=== PATIENT | female | born 1940 | race Hispanic/Latino ===

== ENCOUNTER 2018-04-21 15:26 | Inpatient (IN) | payer MEDICARE, MEDICAID ==
[2018-04-21 16:11] VITALS: BMI 33.3
--- NOTE | 2018-04-21 16:20 | ED PDOC ---
Arrival/HPI - General Time Seen by Provider: 04/21/18 16:08 Historian: Patient, Family (daughter) - History of Present Illness Narrative History of Present Illness (Text): 04/21/18 16:48 78 year old female, whose past medical history includes hypertension, hyperlipidemia, cataracts, osteoarthritis, spinal stenosis, herniated disk, partial colectomy, and inguinal hernia, presents to the emergency department accompanied by her daughter for worsening abdominal pain. Patient states that she has been experiencing abdominal pain for the past few weeks, but today she states that she can longer tolerate the pain. She notes this symptom feels like prior hernia. She notes associated diarrhea, and naseua. No constipation. She has taken Tylenol with no relief. Patient denies fevers, chills, headache, dizziness, chest pain, shortness of breath, dyspnea on exertion, cough, vomiting, back pain, neck pain, or any other complaint. PMD: Dr. Degroot Time/Duration: > week Symptom Course: Worsening Activities at Onset: Light Context: Home Past Medical History - Provider Review Nursing Documentation Reviewed: Yes - Infectious Disease Hx of Infectious Diseases: None - Cardiac Hx Cardiac Disorders: Yes Hx Hypertension: Yes Hx Peripheral Edema: Yes - Pulmonary Hx Respiratory Disorders: No - Neurological Hx Neurological Disorder: No - HEENT Hx HEENT Disorder: Yes Hx Cataracts: Yes - Renal Hx Renal Disorder: No - Endocrine/Metabolic Hx Endocrine Disorders: No - Hematological/Oncological Hx Blood Disorders: No - Integumentary Hx Dermatological Disorder: No - Musculoskeletal/Rheumatological Hx Musculoskeletal Disorders: Yes Hx Arthritis: Yes Hx Back Pain: Yes Hx Falls: No Hx Herniated Disk: Yes Hx Osteoarthritis: Yes Hx Spinal Stenosis: Yes Other/Comment: HX: CARPAL TUNNEL SYNDROME - Gastrointestinal Hx Gastrointestinal Disorders: Yes Hx Bowel Surgery: Yes (PARTIAL COLECTOMY) Hx Gastroesophageal Reflux: Yes Other/Comment: - Colonoscopy. - Endoscopy. - Peptic Ulcer Disease. - Colonic Polyps (Pre-Cancerous) - Genitourinary/Gynecological Hx Genitourinary Disorders: No - Psychiatric Hx Psychophysiologic Disorder: No - Surgical History Other/Comment: HX: 10/29/15-DECOMPRESSION L4-5, FUSION WITH FIXATION L5-S1 USING SCREWS. HX: 06/09/16-LEFT CARPAL TUNNEL RELEASE ENDOSCOPIC WITH STEROID INJECTION LEFT HAND ALL FINGERS; EXCISION LEFT RING FINGER MASS. HX: 08/12/16- CARPAL/CUBITAL TUNNEL RELEASE ENDOSCOPIC RIGHT - Anesthesia Hx Anesthesia: Yes Hx Anesthesia Reactions: No Hx Malignant Hyperthermia: No - Suicidal Assessment Feels Threatened In Home Enviroment: No Family/Social History - Physician Review Nursing Documentation Reviewed: Yes Family/Social History: No Known Family HX Smoking Status: Never Smoked Hx Alcohol Use: No Allergies/Home Meds Allergies/Adverse Reactions: Allergies No Known Allergies Allergy (Verified 10/31/15 20:58) Home Medications: Home Meds Medication Instructions Recorded Confirmed Lisinopril/Hydrochlorothiazide 1 tab PO DAILY 04/21/18 04/21/18 [Lisinopril-Hctz 20-12.5 mg Tab] Omeprazole 1 cap PO DAILY 04/21/18 04/21/18 RX: Ezetimibe [Zetia] 1 tab PO DAILY 04/21/18 04/21/18 RX: Tamoxifen [Nolvadex] 20 mg PO DAILY 04/21/18 04/21/18 RX: Zolpidem [Ambien] 1 tab PO HS PRN 04/21/18 04/21/18 Review of Systems - Physician Review All systems were reviewed & negative as marked: Yes - Review of Systems Constitutional: absent: Fatigue, Fevers Eyes: absent: Vision Changes ENT: absent: Hearing Changes Respiratory: absent: SOB, Cough Cardiovascular: absent: Chest Pain Gastrointestinal: Abdominal Pain, Diarrhea, Nausea. absent: Constipation, Vomiting, Appetite Changes, Hematochezia, Hematemesis, Anorexia, Food Intolerance Genitourinary Female: absent: Dysuria, Frequency, Hematuria, Urine Output Changes, Vaginal Bleeding, Vaginal Discharge Musculoskeletal: absent: Back Pain, Neck Pain, Joint Swelling, Myalgias Skin: absent: Rash Neurological: absent: Headache, Dizziness Endocrine: absent: Diaphoresis Physical Exam Vital Signs Reviewed: Yes Temperature: Afebrile Blood Pressure: Normal Pulse: Regular Respiratory Rate: Normal Appearance: Positive for: Well-Appearing, Non-Toxic, Comfortable Pain Distress: None Mental Status: Positive for: Alert and Oriented X 3 - Systems Exam Head: Present: Atraumatic, Normocephalic Pupils: Present: PERRL Extroacular Muscles: Present: EOMI Conjunctiva: Present: Normal Mouth: Present: Moist Mucous Membranes Neck: Present: Normal Range of Motion. No: Meningeal Signs Respiratory/Chest: Present: Clear to Auscultation, Good Air Exchange. No: Respiratory Distress, Accessory Muscle Use Cardiovascular: Present: Regular Rate and Rhythm, Normal S1, S2. No: Murmurs Abdomen: Present: Tenderness (periumbilical tenderness), Normal Bowel Sounds. No: Distention, Peritoneal Signs, Rebound, Guarding, Rovsing's Sign Present, Hernias Back: Present: Normal Inspection Upper Extremity: Present: Normal Inspection. No: Cyanosis, Edema Lower Extremity: Present: Normal Inspection. No: Edema Neurological: Present: GCS=15, CN II-XII Intact, Speech Normal Skin: Present: Warm, Dry, Normal Color. No: Rashes Psychiatric: Present: Alert, Oriented x 3, Normal Insight, Normal Concentration Medical Decision Making ED Course and Treatment: 04/21/18 16:20 Impression: 78 year old female who presents to the emergency department complaining of abdominal pain. On exam, periumbilical tenderness without notable hernia sac. No direct inguinal hernia noted. No constipation or diarrhea. No dark or bloody stool. Likely umbilical hernia vs colitis. Pending imaging and labs. No vagina d/c or rash. No trauma or fall. No chest pain or sob. Plan: -- Abdomen and Pellvis CT --EKG --Labs -- IV fluids -- Zofran -- Urinalysis -- Reassess and disposition Prior Visits: Notes and results from previous visits were reviewed. Progress Notes: EKG reviewed, shows: NSR at 80bpm, no stemi. 04/21/18 1900 labs largely unremarkable pt in NAD pending UA completion pending CT abd pelvis Signed out to oncoming physician: Dr. Rouse pending imaging. Pt and family agreeable to plan. - Scribe Statement The provider has reviewed the documentation as recorded by the Keraibjose luis Knapp Provider Scribe Attestation: All medical record entries made by the Scribe were at my direction and personally dictated by me. I have reviewed the chart and agree that the record accurately reflects my personal performance of the history, physical exam, medical decision making, and the department course for this patient. I have also personally directed, reviewed, and agree with the discharge instructions and disposition. Disposition/Present on Arrival - Present on Arrival Any Indicators Present on Arrival: No History of DVT/PE: No History of Uncontrolled Diabetes: No Urinary Catheter: No History Surgical Site Infection Following: Orthopedic Procedures - Disposition Have Diagnosis and Disposition been Completed?: Yes Diagnosis: Abdominal pain Disposition: HOSPITALIZED Disposition Time: 19:00 Condition: GOOD
[2018-04-21] MEDS ORDERED: Sodium Chloride 0.9% 1,000 ML IV SCH (16:30)
[2018-04-21] MEDS ORDERED: Iohexol 240 (50 ml) ONE (16:47)
[2018-04-21 17:19] LABS: ALB/GLOB RATIO 1.3 (1.1-1.8); ALBUMIN 3.8 g/dL (3.0-4.8); ALT/SGPT 28 U/L (7-56); AST/SGOT 34 U/L (14-36); BLOOD UREA NITROGEN 13 mg/dL (7-21); CALCIUM 8.9 mg/dL (8.4-10.5); GFR NON-AFRICAN AMERICAN > 60; LIPASE 48 U/L (23-300)
[2018-04-21 17:21] LABS: BASO # 0.02 K/mm3 (0.0-2.0); BASO % 0.3 % (0.0-3.0); EOS % 0.1 % (1.5-5.0); GRAN # 6.5 (1.4-6.5); GRAN % 81.8 % (50.0-68.0); HEMOGLOBIN 10.9 g/dL (12.0-16.0); LYMPH # 1.2 (1.2-3.4); LYMPH % 14.8 % (22.0-35.0); MEAN CELL VOLUME 88.3 fl (80.0-105.0); MEAN CORPUSCULAR HEMOGLOBIN 29.8 pg (25.0-35.0); MEAN CORPUSCULAR HGB CONC 33.7 g/dl (31.0-37.0); MEAN PLATELET VOLUME 9.9 fl (7.0-11.0); MONO # 0.2 (0.1-0.6); RBC 3.66 10^6/uL (3.5-6.1); RED CELL DISTRIBUTION WIDTH 12.6 % (11.5-14.5)
[2018-04-21] MEDS ORDERED: Iohexol 350 MG/100 ML VIAL ONE (18:17)
[2018-04-21 18:22] LABS: URINE BILIRUBIN NEGATIVE (NEGATIVE); URINE BLOOD TRACE-INTACT (NEGATIVE); URINE GLUCOSE (UA) NEGATIVE (NEGATIVE); URINE LEUKOCYTE ESTERASE NEGATIVE Leu/uL (NEGATIVE); URINE PROTEIN NEGATIVE mg/dL (<30 mg/dL); URINE UROBILINOGEN 0.2 E.U./dL (<1 E.U./dL)
[2018-04-21 18:36] LABS: URINE APPEARANCE CLEAR (CLEAR); URINE COLOR YELLOW (YELLOW)
--- NOTE | 2018-04-21 18:58 | ED PDOC ---
Physical Exam Vital Signs Reviewed: Yes Vital Signs Temp Pulse Resp BP Pulse Ox 04/21/18 18:52 98.0 F 71 18 116/50 L 99 04/21/18 15:26 99.8 F H 85 16 139/70 98 Temperature: Afebrile Blood Pressure: Normal Pulse: Regular Respiratory Rate: Normal Appearance: Positive for: Well-Appearing, Non-Toxic, Comfortable Pain Distress: None Mental Status: Positive for: Alert and Oriented X 3 Medical Decision Making ED Course and Treatment: 04/21/18 18:56 Patient initially presented with abdominal pain and has history of umbilical hernia. PCP :Dr. Garg Specialist :Dr. Mandel(general surgery) Signout received from Dr. Roberts with labs, CT a/p, and reassessment. 04/21/18 20:56 CT a/p reveals pancolitis with patient reevaluated and reports slight improvement in pain. Rochephin and Flagyl ordered. Shared decision making with patient and daughter who desire for patient to stay in hospital. Spoke to Dr. Centeno(house staff) who accepts patient onto his service. - Lab Interpretations Lab Results: 04/21/18 16:45 04/21/18 16:45 Lab Results 04/21/18 18:14: Urine Color Yellow, Urine Appearance Clear, Urine pH 6.0, Ur Specific [place] 1.010, Urine Protein Negative, Urine Glucose (UA) Negative, Urine Ketones Negative, Urine Blood Trace-intact H, Urine Nitrate Positive H, Urine Bilirubin Negative, Urine Urobilinogen 0.2, Ur Leukocyte Esterase Negative, Urine RBC Pending, Urine WBC Pending 04/21/18 16:45: Sodium 140, Potassium 3.3 L, Chloride 106, Carbon Dioxide 26, Anion Gap 11, BUN 13, Creatinine 0.9, Est GFR ( Amer) > 60, Est GFR (Non- Af Amer) > 60, Random Glucose 139 H, Calcium 8.9, Magnesium 1.7, Total Bilirubin 0.4, AST 34, ALT 28, Alkaline Phosphatase 54, Total Protein 6.7, Albumin 3.8, Globulin 2.9, Albumin/Globulin Ratio 1.3, Lipase 48 04/21/18 16:45: WBC 8.0, RBC 3.66, Hgb 10.9 L, Hct 32.3 L, MCV 88.3, MCH 29.8, MCHC 33.7, RDW 12.6, Plt Count 217, MPV 9.9, Gran % 81.8 H, Lymph % (Auto) 14.8 L, [place] % (Auto) 3.0, Eos % (Auto) 0.1 L, Baso % (Auto) 0.3, Gran # 6.50, Lymph # (Auto) 1.2, [place] # (Auto) 0.2, Eos # (Auto) 0.0, Baso # (Auto) 0.02 - RAD Interpretation Radiology Orders: 04/21/18 16:22 ABD PELVIS PO & IV CONTRAST [CT] Stat - Medication Orders Current Medication Orders: Sodium Chloride (Sodium Chloride 0.9%) 1,000 mls @ 100 mls/hr IV .Q10H [facility] Last Admin: 04/21/18 17:04 Dose: 100 mls/hr eMAR Start Stop Document 04/21/18 17:04 (Rec: 04/21/18 17:04 [place] [id number]) Intravenous Solution Start Date 04/21/18 Start Time 17:04 Discontinued Medications Ondansetron HCl (Zofran Inj) 4 mg IVP STAT STA Stop: 04/21/18 16:23 Last Admin: 04/21/18 16:55 Dose: 4 mg IVP Administration Document 04/21/18 16:55 (Rec: 04/21/18 16:55 [place] [id number]) Charges for Administration # of IVP Administrations 1 Disposition/Present on Arrival - Present on Arrival Any Indicators Present on Arrival: Yes History of DVT/PE: No History of Uncontrolled Diabetes: No Urinary Catheter: No History of Decub. Ulcer: No History Surgical Site Infection Following: Orthopedic Procedures - Disposition Have Diagnosis and Disposition been Completed?: Yes Diagnosis: Pancolitis Disposition: HOSPITALIZED Disposition Time: 20:50 Patient Plan: Admission Condition: GUARDED
[2018-04-21 18:59] LABS: URINE BACTERIA SMALL /hpf; URINE WBC 0 - 2 /hpf (0-6)
[2018-04-21] MEDS ORDERED: cefTRIAXone 1 gm 1 GM/100 ML BAG IVPB STA (21:02)
[2018-04-21] MEDS ORDERED: metroNIDAZOLE IV 500 mg/100 ml 500 MG/100 ML BAG IVPB STA (21:02)
[2018-04-22] MEDS ORDERED: Sodium Chloride 0.9% 1,000 ML IV SCH (01:30)
--- NOTE | 2018-04-22 04:09 | CP.PCM.CON ---
<Josette Landeros - Last Filed: 04/22/18 07:27> History of Present Illness - History of Present Illness History of Present Illness: General Surgery Consult note for Dr. Askew consulted for Colitis Patient is a 78 yr old female with PMH HTN, HLD, OA, spinal stenosis who presents to [facility] ED with 3 days of worsening abdominal pain, yellow diarrhea and one episode of nausea and chills this am. She denies any LINDSEY, Fevers, CP, SOB, vomiting, blood in stool, recent travel (returned from [place] 2 months ago), or recent antibiotic use. PMH: HTN, HLD, OA, spinal stenosis PSH: umbilical hernia repair, right inguinal hernia repair, right hemicolectomy right mastectomy/ lumpectomy in August (on Tamoxifen), bilateral cataract surgery, lumbar disc surgery (has plates), bone stimulator (no MRI) Social: denies all: nkda Review of Systems - Review of Systems All systems: reviewed and no additional remarkable complaints except (as per HPI) Past Patient History - Infectious Disease Hx of Infectious Diseases: None - Past Medical History & Family History Past Medical History?: Yes - Past Social History Smoking Status: Never Smoked - CARDIAC Hx Cardiac Disorders: Yes Hx Hypertension: Yes Hx Peripheral Edema: Yes - PULMONARY Hx Respiratory Disorders: No - NEUROLOGICAL Hx Neurological Disorder: No - HEENT Hx HEENT Problems: Yes Hx Cataracts: Yes - RENAL Hx Chronic Kidney Disease: No - ENDOCRINE/METABOLIC Hx Endocrine Disorders: No - HEMATOLOGICAL/ONCOLOGICAL Hx Blood Disorders: No - INTEGUMENTARY Hx Dermatological Problems: No - MUSCULOSKELETAL/RHEUMATOLOGICAL Hx Musculoskeletal Disorders: Yes Hx Arthritis: Yes Hx Back Pain: Yes Hx Falls: No Hx Herniated Disk: Yes Hx Osteoarthritis: Yes Hx Spinal Stenosis: Yes Other/Comment: HX: CARPAL TUNNEL SYNDROME - GASTROINTESTINAL Hx Gastrointestinal Disorders: Yes Hx Gastroesophageal Reflux: Yes Other/Comment: - Colonoscopy. - Endoscopy. - Peptic Ulcer Disease. - Colonic Polyps (Pre-Cancerous) - GENITOURINARY/GYNECOLOGICAL Hx Genitourinary Disorders: No - PSYCHIATRIC Hx Psychophysiologic Disorder: No Hx Substance Use: No - SURGICAL HISTORY Hx Surgeries: Yes - ANESTHESIA Hx Anesthesia: Yes Hx Anesthesia Reactions: No Hx Malignant Hyperthermia: No Meds Allergies/Adverse Reactions: Allergies Allergy/AdvReac Type Severity Reaction Status Date / Time No Known Allergies Allergy Verified 10/31/15 20:58 - Medications Medications: Current Medications Acetaminophen (Tylenol 325mg Tab) 650 mg PO Q6H PRN PRN Reason: Pain, moderate (4-7) Ezetimibe (Zetia) 10 mg PO DAILY [facility] Hydrochlorothiazide (Microzide) 12.5 mg PO DAILY [facility] Metronidazole (Flagyl) 500 mg in 100 mls @ 100 mls/hr IVPB Q8 [facility]; Protocol Ceftriaxone Sodium (Rocephin 1 Gram Ivpb) 1 gm in 100 mls @ 100 mls/hr IVPB DAILY [facility]; Protocol Sodium Chloride (Sodium Chloride 0.9%) 1,000 mls @ 60 mls/hr IV .[id number] [facility] Last Admin: 04/22/18 03:35 Dose: 60 mls/hr Potassium Chloride (Potassium Chloride 20 Meq/100 Ml) 20 meq in 100 mls @ 50 mls/hr IVPB Q2H [facility] Stop: 04/22/18 06:14 Last Admin: 04/22/18 03:34 Dose: 50 mls/hr Lisinopril (Zestril) 20 mg PO DAILY [facility] Ondansetron HCl (Zofran Inj) 4 mg IVP Q6H PRN PRN Reason: Nausea/Vomiting Tamoxifen Citrate (Nolvadex) 20 mg PO DAILY [facility] Zolpidem Tartrate (Ambien) 5 mg PO HS PRN; Protocol PRN Reason: Sleep Physical Exam - Constitutional Appears: Well, Non-toxic, No Acute Distress - Head Exam Head Exam: ATRAUMATIC, NORMOCEPHALIC - Eye Exam Eye Exam: EOMI - ENT Exam ENT Exam: Mucous Membranes Moist - Respiratory Exam Respiratory Exam: NORMAL BREATHING PATTERN - Cardiovascular Exam Cardiovascular Exam: REGULAR RHYTHM - GI/Abdominal Exam GI & Abdominal Exam: Soft, Tenderness (mild RUQ, RLQ, LLQ). absent: Distended, Guarding - Extremities Exam Extremities exam: Positive for: pedal pulses present. Negative for: calf tenderness, pedal edema - Neurological Exam Neurological exam: Alert, Oriented x3 - Psychiatric Exam Psychiatric exam: Normal Affect, Normal Mood - Skin Skin Exam: Dry, Intact, Normal Color, Warm Additional comments: umbilical and inguinal scars noted Results - Vital Signs Recent Vital Signs: Last Vital Signs Temp 98.8 F 04/21/18 22:37 Pulse 80 04/21/18 22:37 Resp 20 04/22/18 01:25 BP 151/72 H 04/21/18 22:37 Pulse Ox 98 04/21/18 22:37 - Labs Result Diagrams: 04/22/18 06:00 04/21/18 16:45 Labs: Laboratory Results - last 24 hr 04/21/18 04/21/18 04/21/18 16:45 16:45 18:14 WBC 8.0 RBC 3.66 Hgb 10.9 L Hct 32.3 L MCV 88.3 MCH 29.8 MCHC 33.7 RDW 12.6 Plt Count 217 MPV 9.9 Gran % 81.8 H Lymph % (Auto) 14.8 L [place] % (Auto) 3.0 Eos % (Auto) 0.1 L Baso % (Auto) 0.3 Gran # 6.50 Lymph # (Auto) 1.2 [place] # (Auto) 0.2 Eos # (Auto) 0.0 Baso # (Auto) 0.02 Sodium 140 Potassium 3.3 L Chloride 106 Carbon Dioxide 26 Anion Gap 11 BUN 13 Creatinine 0.9 Est GFR ( Amer) > 60 Est GFR (Non-Af Amer) > 60 Random Glucose 139 H Calcium 8.9 Magnesium 1.7 Total Bilirubin 0.4 AST 34 ALT 28 Alkaline Phosphatase 54 Total Protein 6.7 Albumin 3.8 Globulin 2.9 Albumin/Globulin Ratio 1.3 Lipase 48 Urine Color Yellow Urine Appearance Clear Urine pH 6.0 Ur Specific [place] 1.010 Urine Protein Negative Urine Glucose (UA) Negative Urine Ketones Negative Urine Blood Trace-intact H Urine Nitrate Positive H Urine Bilirubin Negative Urine Urobilinogen 0.2 Ur Leukocyte Esterase Negative Urine RBC 2 - 5 H Urine WBC 0 - 2 Ur Epithelial Cells 1 - 3 Urine Bacteria Small Assessment & Plan - Assessment and Plan (Free Text) Assessment: 78 F with Colitis Plan: IVF NPO pain control Zofran PRN Cdiff toxin/antigen recommend Dr. Ferro for GI as pt known to him discussed with Dr. Jamilah Landeros, PGY 1 - Date & Time Date: 04/21/18 Time: 22:35 <Joss Askew - Last Filed: 04/22/18 15:05> Meds - Medications Medications: Current Medications Acetaminophen (Tylenol 325mg Tab) 650 mg PO Q6H PRN PRN Reason: Pain, moderate (4-7) Ezetimibe (Zetia) 10 mg PO DAILY [facility] Last Admin: 04/22/18 09:20 Dose: 10 mg Enoxaparin Sodium (Lovenox) 40 mg SC DAILY [facility]; Protocol Last Admin: 04/22/18 09:09 Dose: 40 mg Hydrochlorothiazide (Microzide) 12.5 mg PO DAILY [facility] Last Admin: 04/22/18 09:10 Dose: 12.5 mg Metronidazole (Flagyl) 500 mg in 100 mls @ 100 mls/hr IVPB Q8 [facility]; Protocol Last Admin: 04/22/18 13:52 Dose: 100 mls/hr Ceftriaxone Sodium (Rocephin 1 Gram Ivpb) 1 gm in 100 mls @ 100 mls/hr IVPB DAILY [facility]; Protocol Last Admin: 04/22/18 09:19 Dose: 100 mls/hr Potassium Chloride 40 meq/ (Sodium Chloride) 1,020 mls @ 60 mls/hr IV .Q17H [facility] Last Admin: 04/22/18 09:14 Dose: 60 mls/hr Lisinopril (Zestril) 20 mg PO DAILY [facility] Last Admin: 04/22/18 09:19 Dose: 20 mg Morphine Sulfate (Morphine) 2 mg IVP Q4H PRN PRN Reason: Pain, severe (8-10) Last Admin: 04/22/18 14:46 Dose: 2 mg Ondansetron HCl (Zofran Inj) 4 mg IVP Q6H PRN PRN Reason: Nausea/Vomiting Pantoprazole Sodium (Protonix Inj) 40 mg IVP DAILY [facility] Last Admin: 04/22/18 09:14 Dose: 40 mg Tamoxifen Citrate (Nolvadex) 20 mg PO DAILY [facility] Last Admin: 04/22/18 09:11 Dose: 20 mg Zolpidem Tartrate (Ambien) 5 mg PO HS PRN; Protocol PRN Reason: Sleep Results - Vital Signs Recent Vital Signs: Last Vital Signs Temp 98.4 F 04/22/18 07:44 Pulse 74 04/22/18 09:19 Resp 20 04/22/18 07:44 BP 149/79 04/22/18 09:19 Pulse Ox 94 L 04/22/18 07:44 - Labs Result Diagrams: 04/22/18 06:00 04/22/18 06:00 Labs: Laboratory Results - last 24 hr 04/21/18 04/21/18 04/21/18 16:45 16:45 18:14 WBC 8.0 RBC 3.66 Hgb 10.9 L Hct 32.3 L MCV 88.3 MCH 29.8 MCHC 33.7 RDW 12.6 Plt Count 217 MPV 9.9 Gran % 81.8 H Lymph % (Auto) 14.8 L [place] % (Auto) 3.0 Eos % (Auto) 0.1 L Baso % (Auto) 0.3 Gran # 6.50 Lymph # (Auto) 1.2 [place] # (Auto) 0.2 Eos # (Auto) 0.0 Baso # (Auto) 0.02 Sodium 140 Potassium 3.3 L Chloride 106 Carbon Dioxide 26 Anion Gap 11 BUN 13 Creatinine 0.9 Est GFR ( Amer) > 60 Est GFR (Non-Af Amer) > 60 Random Glucose 139 H Calcium 8.9 Magnesium 1.7 Total Bilirubin 0.4 AST 34 ALT 28 Alkaline Phosphatase 54 Total Protein 6.7 Albumin 3.8 Globulin 2.9 Albumin/Globulin Ratio 1.3 Lipase 48 Urine Color Yellow Urine Appearance Clear Urine pH 6.0 Ur Specific [place] 1.010 Urine Protein Negative Urine Glucose (UA) Negative Urine Ketones Negative Urine Blood Trace-intact H Urine Nitrate Positive H Urine Bilirubin Negative Urine Urobilinogen 0.2 Ur Leukocyte Esterase Negative Urine RBC 2 - 5 H Urine WBC 0 - 2 Ur Epithelial Cells 1 - 3 Urine Bacteria Small 04/22/18 04/22/18 06:00 06:00 WBC 8.4 RBC 3.81 Hgb 11.2 L Hct 33.9 L MCV 89.0 MCH 29.4 MCHC 33.0 RDW 12.8 Plt Count 209 MPV 9.8 Gran % 70.5 H Lymph % (Auto) 23.3 [place] % (Auto) 4.7 Eos % (Auto) 1.3 L Baso % (Auto) 0.2 Gran # 5.90 Lymph # (Auto) 2.0 [place] # (Auto) 0.4 Eos # (Auto) 0.1 Baso # (Auto) 0.02 Sodium 142 Potassium 3.4 L Chloride 110 H Carbon Dioxide 25 Anion Gap 10 BUN 12 Creatinine 0.9 Est GFR ( Amer) > 60 Est GFR (Non-Af Amer) > 60 Random Glucose 111 H Calcium 8.7 Magnesium Total Bilirubin 0.3 AST 26 ALT 26 Alkaline Phosphatase 58 Total Protein 6.9 Albumin 3.9 Globulin 3.0 Albumin/Globulin Ratio 1.3 Lipase Urine Color Urine Appearance Urine pH Ur Specific [place] Urine Protein Urine Glucose (UA) Urine Ketones Urine Blood Urine Nitrate Urine Bilirubin Urine Urobilinogen Ur Leukocyte Esterase Urine RBC Urine WBC Ur Epithelial Cells Urine Bacteria Assessment & Plan - Assessment and Plan (Free Text) Plan: Patient was seen, evaluated and examined by Dr. Rosario. . He agreed with the assessment and plan as per the resident's note.
--- NOTE | 2018-04-22 04:28 | CP.PCM.HP ---
<JulienThad - Last Filed: 04/23/18 20:13> History of Present Illness - History of Present Illness History of Present Illness: Amadeo Victoria, PGY-1 Medicine H&P Note for Dr. Mack: CC: Worsening Abd pain Pt is an 78 yo F with pmhx of HTN, HLD, cataracts, OA, spinal stenosis, herniated disk, partial colectomy, GERD and inguinal hernia who presents to the ED for worsening abd pain. She states that she has been having the same abd pain for about 5-6 months, but had acutely worsened since this AM. She reports that this AM when having her coffee she had an episode that was a 10/10 in intensity that starts around her belly button and then goes to her lower abdomen diffusely. She states that these episodes of abd pain last for only 20-30 mins and is typically self limiting. She does not relate the episodes of pain to food. At this time she denies fevers, chills, headaches, lightheadedness, SOB, cough, wheezing, chest pain, palpitations, leg swelling, nausea, vomiting, c/d, dysuria, or frequency. She admits to abd pain. Pmhx: HTN, HLD, cataracts, OA, spinal stenosis, herniated disk, partial colectomy, GERD and inguinal hernia Pshx: Breast ca (07/18) Meds: Omeprazole, tamoxifin, Lisinopril, ezetimibe, zolpidem All: NKDA Soc: Denies any tobacco use, Drinks a glass of wine at night, Denies illicit drug use Fam: Non-contributory Pmd: Mutterperl Pharm: Marlen Present on Admission - Present on Admission Any Indicators Present on Admission: No Review of Systems - Review of Systems Review of Systems: 12 point ROS reviewed and negative except for stated in HPI above. Past Patient History - Infectious Disease Hx of Infectious Diseases: None - Past Medical History & Family History Past Medical History?: Yes - Past Social History Smoking Status: Never Smoked - CARDIAC Hx Cardiac Disorders: Yes Hx Hypertension: Yes Hx Peripheral Edema: Yes - PULMONARY Hx Respiratory Disorders: No - NEUROLOGICAL Hx Neurological Disorder: No - HEENT Hx HEENT Problems: Yes Hx Cataracts: Yes - RENAL Hx Chronic Kidney Disease: No - ENDOCRINE/METABOLIC Hx Endocrine Disorders: No - HEMATOLOGICAL/ONCOLOGICAL Hx Blood Disorders: No - INTEGUMENTARY Hx Dermatological Problems: No - MUSCULOSKELETAL/RHEUMATOLOGICAL Hx Musculoskeletal Disorders: Yes Hx Arthritis: Yes Hx Back Pain: Yes Hx Falls: No Hx Herniated Disk: Yes Hx Osteoarthritis: Yes Hx Spinal Stenosis: Yes Other/Comment: HX: CARPAL TUNNEL SYNDROME - GASTROINTESTINAL Hx Gastrointestinal Disorders: Yes Hx Gastroesophageal Reflux: Yes Other/Comment: - Colonoscopy. - Endoscopy. - Peptic Ulcer Disease. - Colonic Polyps (Pre-Cancerous) - GENITOURINARY/GYNECOLOGICAL Hx Genitourinary Disorders: No - PSYCHIATRIC Hx Psychophysiologic Disorder: No Hx Substance Use: No - SURGICAL HISTORY Hx Surgeries: Yes - ANESTHESIA Hx Anesthesia: Yes Hx Anesthesia Reactions: No Hx Malignant Hyperthermia: No Meds Allergies/Adverse Reactions: Allergies Allergy/AdvReac Type Severity Reaction Status Date / Time No Known Allergies Allergy Verified 10/31/15 20:58 Physical Exam - Constitutional Appears: Well, Non-toxic, No Acute Distress - Head Exam Head Exam: ATRAUMATIC, NORMAL INSPECTION, NORMOCEPHALIC - Eye Exam Eye Exam: EOMI, Normal appearance, PERRL - ENT Exam ENT Exam: Mucous Membranes Moist, Normal Exam - Respiratory Exam Respiratory Exam: Clear to Auscultation Bilateral, NORMAL BREATHING PATTERN. absent: Accessory Muscle Use, Decreased Breath Sounds, Rales, Rhonchi, Wheezes, Respiratory Distress, Stridor - Cardiovascular Exam Cardiovascular Exam: RRR, +S1, +S2. absent: Gallop, Rubs - GI/Abdominal Exam GI & Abdominal Exam: Normal Bowel Sounds, Soft, Tenderness (present diffusely on the R side ). absent: Distended, Firm, Guarding - Extremities Exam Extremities exam: Positive for: normal capillary refill, normal inspection, pedal pulses present. Negative for: calf tenderness, pedal edema, tenderness - Back Exam Back exam: NORMAL INSPECTION. absent: CVA tenderness (L), CVA tenderness (R) - Neurological Exam Neurological exam: Alert, Oriented x3 - Psychiatric Exam Psychiatric exam: Normal Affect, Normal Mood - Skin Skin Exam: Dry, Normal Color, Warm Results - Vital Signs Recent Vital Signs: Last Vital Signs Temp 98.8 F 04/21/18 22:37 Pulse 80 04/21/18 22:37 Resp 20 04/22/18 01:25 BP 151/72 H 04/21/18 22:37 Pulse Ox 98 04/21/18 22:37 - Labs Result Diagrams: 04/21/18 16:45 04/21/18 16:45 Labs: Laboratory Results - last 24 hr 04/21/18 04/21/18 04/21/18 16:45 16:45 18:14 WBC 8.0 RBC 3.66 Hgb 10.9 L Hct 32.3 L MCV 88.3 MCH 29.8 MCHC 33.7 RDW 12.6 Plt Count 217 MPV 9.9 Gran % 81.8 H Lymph % (Auto) 14.8 L [place] % (Auto) 3.0 Eos % (Auto) 0.1 L Baso % (Auto) 0.3 Gran # 6.50 Lymph # (Auto) 1.2 [place] # (Auto) 0.2 Eos # (Auto) 0.0 Baso # (Auto) 0.02 Sodium 140 Potassium 3.3 L Chloride 106 Carbon Dioxide 26 Anion Gap 11 BUN 13 Creatinine 0.9 Est GFR ( Amer) > 60 Est GFR (Non-Af Amer) > 60 Random Glucose 139 H Calcium 8.9 Magnesium 1.7 Total Bilirubin 0.4 AST 34 ALT 28 Alkaline Phosphatase 54 Total Protein 6.7 Albumin 3.8 Globulin 2.9 Albumin/Globulin Ratio 1.3 Lipase 48 Urine Color Yellow Urine Appearance Clear Urine pH 6.0 Ur Specific [place] 1.010 Urine Protein Negative Urine Glucose (UA) Negative Urine Ketones Negative Urine Blood Trace-intact H Urine Nitrate Positive H Urine Bilirubin Negative Urine Urobilinogen 0.2 Ur Leukocyte Esterase Negative Urine RBC 2 - 5 H Urine WBC 0 - 2 Ur Epithelial Cells 1 - 3 Urine Bacteria Small Assessment & Plan - Assessment and Plan (Free Text) Assessment: Pt is an 78 yo F with pmhx of HTN, HLD, cataracts, OA, spinal stenosis, herniated disk, partial colectomy, GERD and inguinal hernia who presents to the ED for worsening abd pain. CT Abd/pelvis showed colitis, f/u official read. Plan: 1. Pancolitis: - CT Abd/Pelvis - Pancolitis noted on ct - f/u official read - GI consulted - Dr. Pillo Duque and flagyl started - NS @ 60/hr - Blood cx - Surgery consulted - Dr. Jony Campuzano PRMari 2. Hypokalemia: - Repleted, will f/u in AM labs 3. Hx of HLD: - Cont home ezetimibe 4. Hx of HTN: - Cont HCTZ, lisinopril 5. Hx of R breast Ca s/p mastectomy: - Cont home tamoxifen 6. PPx: GI: Protonix DVT: Lovenox <Mike Betancourt - Last Filed: 04/24/18 19:08> Results - Vital Signs Recent Vital Signs: Last Vital Signs Temp 97.6 F 04/24/18 06:00 Pulse 68 04/24/18 06:00 Resp 20 04/24/18 06:00 BP 159/84 H 04/24/18 06:00 Pulse Ox 98 04/24/18 06:00 - Labs Result Diagrams: 04/24/18 06:30 04/24/18 06:30 Labs: Laboratory Results - last 24 hr 04/24/18 04/24/18 06:30 06:30 WBC 6.4 RBC 4.10 Hgb 12.1 Hct 36.8 MCV 89.8 MCH 29.5 MCHC 32.9 RDW 12.9 Plt Count 200 MPV 9.8 Gran % 60.5 Lymph % (Auto) 30.4 [place] % (Auto) 5.4 Eos % (Auto) 3.1 Baso % (Auto) 0.6 Gran # 3.84 Lymph # (Auto) 1.9 [place] # (Auto) 0.3 Eos # (Auto) 0.2 Baso # (Auto) 0.04 Sodium 142 Potassium 4.0 Chloride 110 H Carbon Dioxide 26 Anion Gap 10 BUN 7 Creatinine 0.8 Est GFR ( Amer) > 60 Est GFR (Non-Af Amer) > 60 Random Glucose 112 H Calcium 8.6 Total Bilirubin 0.3 AST 25 ALT 40 Alkaline Phosphatase 53 Total Protein 6.7 Albumin 3.8 Globulin 2.9 Albumin/Globulin Ratio 1.3 Attending/Attestation - Attestation I have personally seen and examined this patient.: Yes I have fully participated in the care of the patient.: Yes I have reviewed all pertinent clinical information: Yes
[2018-04-22 06:38] LABS: BASO # 0.02 K/mm3 (0.0-2.0); BASO % 0.2 % (0.0-3.0); EOS # 0.1 (0.0-0.7); EOS % 1.3 % (1.5-5.0); GRAN # 5.9 (1.4-6.5); GRAN % 70.5 % (50.0-68.0); HEMOGLOBIN 11.2 g/dL (12.0-16.0); LYMPH % 23.3 % (22.0-35.0); MEAN CORPUSCULAR HEMOGLOBIN 29.4 pg (25.0-35.0); MEAN PLATELET VOLUME 9.8 fl (7.0-11.0); MONO # 0.4 (0.1-0.6); MONO % 4.7 % (1.0-6.0); RBC 3.81 10^6/uL (3.5-6.1); RED CELL DISTRIBUTION WIDTH 12.8 % (11.5-14.5); WHITE BLOOD COUNT 8.4 10^3/uL (4.5-11.0)
[2018-04-22] MEDS: metroNIDAZOLE IV 500 mg/100 ml 500 MG/100 ML BAG IVPB SCH ×3 (07:28→21:31)
[2018-04-22 07:34] LABS: ALB/GLOB RATIO 1.3 (1.1-1.8); ALBUMIN 3.9 g/dL (3.0-4.8); ALT/SGPT 26 U/L (7-56); AST/SGOT 26 U/L (14-36); BLOOD UREA NITROGEN 12 mg/dL (7-21); CALCIUM 8.7 mg/dL (8.4-10.5); GFR NON-AFRICAN AMERICAN > 60
[2018-04-22] MEDS ORDERED: Potassium Chloride 20 mEq ER Tab PO STA (07:41)
--- NOTE | 2018-04-22 08:22 | CT ---
Date of service: 04/21/2018 PROCEDURE: CT Abdomen and Pelvis with contrast HISTORY: abd pain COMPARISON: Comparison is made to the previous study dated 01/16/2015 TECHNIQUE: Contrast dose: 100 mL of Omnipaque 350 intravenously. Axial and reformatted coronal and sagittal CT images of the abdomen and pelvis were obtained after IV and oral contrast administration. Radiation dose: Total exam DLP = 835.82 mGy-cm. This CT exam was performed using one or more of the following dose reduction techniques: Automated exposure control, adjustment of the mA and/or kV according to patient size, and/or use of iterative reconstruction technique. FINDINGS: LOWER THORAX: Ground-glass opacities at the lower lobes right more than left noted. No evidence of pleural effusion LIVER: Low-attenuation cystic lesions in the liver are again noted. GALLBLADDER AND BILE DUCTS: Gallstones are noted without evidence of acute cholecystitis. PANCREAS: Unremarkable. No gross lesion or ductal dilatation. SPLEEN: Unremarkable. ADRENALS: Unremarkable. No mass. KIDNEYS AND URETERS: Unremarkable. No hydronephrosis. No solid mass. VASCULATURE: Unremarkable. No aortic aneurysm. No aortic atherosclerotic calcification or mural plaque present. BOWEL: Gastric wall thickening is noted. There is suspicious for large bowel wall thickening more prominent in the left colon may represent colitis. Please correlate clinically. No evidence of high-grade bowel obstruction. APPENDIX: No evidence of appendicitis. PERITONEUM: Unremarkable. No free fluid. No free air. LYMPH NODES: Unremarkable. No enlarged lymph nodes. BLADDER: Urinary bladder wall thickening is noted. There is droplet of air seen in the anterior aspect of the bladder. REPRODUCTIVE: The uterus is heterogeneous mildly enlarged for the patient's age. BONES: No acute fracture. OTHER FINDINGS: None. IMPRESSION: Findings suggestive of colitis. Please correlate clinically. Contracted gallbladder contains gallstones. No CT evidence of acute cholecystitis. Gastric wall thickening. Heterogeneous mildly enlarged uterus. Urinary bladder wall thickening. Small droplet of air noted in the bladder. Preliminary report was submitted by [facility] Radiology contains concordant findings.
[2018-04-22] MEDS: Enoxaparin 40 mg Syringe SC SCH (09:09)
--- NOTE | 2018-04-22 09:17 | CARD ---
APPROVED REPORT Date of service: 04/21/2018 EKG Measurement Heart [id number] <Conclusion> Normal sinus rhythm Mild NSSTW changes Prolonged QTc
[2018-04-22] MEDS: cefTRIAXone 1 gm 1 GM/100 ML BAG IVPB SCH (09:19)
--- NOTE | 2018-04-22 09:41 | CP.PCM.CON ---
<Mahin Brennan - Last Filed: 04/22/18 16:34> History of Present Illness - History of Present Illness History of Present Illness: PGY6 GI Fellow Consult Note Patient is an 78yo female with PMHx significant for HTN, hyperlipidemia, PUD, lumbar stenosis s/p surgical repair, osteoarthritis, hepatic cysts and breast cancer who presented to the hospital with complaints of abdominal pain and diarr hea. Two days prior to admission, the patient noted sudden onset bilateral lower abdominal cramping pain. Following onset of pain, she developed multiple episodes of non-bloody, watery diarrhea and fever. As symptoms progressed, she presented to the ED for further evaluation. Denies any sick contacts, nausea, vomiting, weight loss. Traveled to the [place] from [place] two months ago. 12 system ROS performed and negative except where stated PMHx: See HPI PSHx: right hemicolectomy for dysplastic polyp, L4-S1 decompression and laminectomy, L5-S1 pedicle screw fixation, right carpal and cubital tunnel release, left trigger finger release, umbilical hernia repair, right inguinal hernia repair, B/L cataracts, right forearm faciotomy, cholecystectomy, right lumpectomy/mastectomy FHx: Discussed with patient and denies significant family history Social: Denies tobacco, EtOH or illicit drug use Endo: 06/2015 - EGD - stable esophageal subepithelial lesion, gastritis, healed gastric ulcer Past Patient History - Infectious Disease Hx of Infectious Diseases: None - Past Medical History & Family History Past Medical History?: Yes - Past Social History Smoking Status: Never Smoked - CARDIAC Hx Cardiac Disorders: Yes Hx Hypertension: Yes Hx Peripheral Edema: Yes - PULMONARY Hx Respiratory Disorders: No - NEUROLOGICAL Hx Neurological Disorder: No - HEENT Hx HEENT Problems: Yes Hx Cataracts: Yes - RENAL Hx Chronic Kidney Disease: No - ENDOCRINE/METABOLIC Hx Endocrine Disorders: No - HEMATOLOGICAL/ONCOLOGICAL Hx Blood Disorders: No - INTEGUMENTARY Hx Dermatological Problems: No - MUSCULOSKELETAL/RHEUMATOLOGICAL Hx Musculoskeletal Disorders: Yes Hx Arthritis: Yes Hx Back Pain: Yes Hx Falls: No Hx Herniated Disk: Yes Hx Osteoarthritis: Yes Hx Spinal Stenosis: Yes Other/Comment: HX: CARPAL TUNNEL SYNDROME - GASTROINTESTINAL Hx Gastrointestinal Disorders: Yes Hx Gastroesophageal Reflux: Yes Other/Comment: - Colonoscopy. - Endoscopy. - Peptic Ulcer Disease. - Colonic Polyps (Pre-Cancerous) - GENITOURINARY/GYNECOLOGICAL Hx Genitourinary Disorders: No - PSYCHIATRIC Hx Psychophysiologic Disorder: No Hx Substance Use: No - SURGICAL HISTORY Hx Surgeries: Yes - ANESTHESIA Hx Anesthesia: Yes Hx Anesthesia Reactions: No Hx Malignant Hyperthermia: No Meds Allergies/Adverse Reactions: Allergies Allergy/AdvReac Type Severity Reaction Status Date / Time No Known Allergies Allergy Verified 10/31/15 20:58 - Medications Medications: Current Medications Acetaminophen (Tylenol 325mg Tab) 650 mg PO Q6H PRN PRN Reason: Pain, moderate (4-7) Ezetimibe (Zetia) 10 mg PO DAILY [facility] Last Admin: 04/22/18 09:20 Dose: 10 mg Enoxaparin Sodium (Lovenox) 40 mg SC DAILY [facility]; Protocol Last Admin: 04/22/18 09:09 Dose: 40 mg Hydrochlorothiazide (Microzide) 12.5 mg PO DAILY [facility] Last Admin: 04/22/18 09:10 Dose: 12.5 mg Metronidazole (Flagyl) 500 mg in 100 mls @ 100 mls/hr IVPB Q8 [facility]; Protocol Last Admin: 04/22/18 07:28 Dose: 100 mls/hr Ceftriaxone Sodium (Rocephin 1 Gram Ivpb) 1 gm in 100 mls @ 100 mls/hr IVPB DAILY [facility]; Protocol Last Admin: 04/22/18 09:19 Dose: 100 mls/hr Potassium Chloride 40 meq/ (Sodium Chloride) 1,020 mls @ 60 mls/hr IV .Q17H [facility] Last Admin: 04/22/18 09:14 Dose: 60 mls/hr Lisinopril (Zestril) 20 mg PO DAILY [facility] Last Admin: 04/22/18 09:19 Dose: 20 mg Ondansetron HCl (Zofran Inj) 4 mg IVP Q6H PRN PRN Reason: Nausea/Vomiting Pantoprazole Sodium (Protonix Inj) 40 mg IVP DAILY [facility] Last Admin: 04/22/18 09:14 Dose: 40 mg Tamoxifen Citrate (Nolvadex) 20 mg PO DAILY [facility] Last Admin: 04/22/18 09:11 Dose: 20 mg Zolpidem Tartrate (Ambien) 5 mg PO HS PRN; Protocol PRN Reason: Sleep Physical Exam - Constitutional Appears: Non-toxic, No Acute Distress - Eye Exam Eye Exam: EOMI, PERRL - ENT Exam ENT Exam: Mucous Membranes Moist - Respiratory Exam Respiratory Exam: Clear to Auscultation Bilateral. absent: Rales, Rhonchi, Wheezes - Cardiovascular Exam Cardiovascular Exam: RRR, +S1, +S2 - GI/Abdominal Exam GI & Abdominal Exam: Normal Bowel Sounds, Soft, Tenderness (LLQ and RLQ, R>L). absent: Distended, Firm, Guarding, Organomegaly, Rigid - Extremities Exam Extremities exam: Positive for: normal inspection. Negative for: pedal edema - Neurological Exam Neurological exam: Alert, Oriented x3 - Psychiatric Exam Psychiatric exam: Normal Affect, Normal Mood - Skin Skin Exam: Dry, Warm Results - Vital Signs Recent Vital Signs: Last Vital Signs Temp 98.4 F 04/22/18 07:44 Pulse 74 04/22/18 09:19 Resp 20 04/22/18 07:44 BP 149/79 04/22/18 09:19 Pulse Ox 94 L 04/22/18 07:44 - Labs Result Diagrams: 04/22/18 06:00 04/22/18 06:00 Labs: Laboratory Results - last 24 hr 04/21/18 04/21/18 04/21/18 16:45 16:45 18:14 WBC 8.0 RBC 3.66 Hgb 10.9 L Hct 32.3 L MCV 88.3 MCH 29.8 MCHC 33.7 RDW 12.6 Plt Count 217 MPV 9.9 Gran % 81.8 H Lymph % (Auto) 14.8 L [place] % (Auto) 3.0 Eos % (Auto) 0.1 L Baso % (Auto) 0.3 Gran # 6.50 Lymph # (Auto) 1.2 [place] # (Auto) 0.2 Eos # (Auto) 0.0 Baso # (Auto) 0.02 Sodium 140 Potassium 3.3 L Chloride 106 Carbon Dioxide 26 Anion Gap 11 BUN 13 Creatinine 0.9 Est GFR ( Amer) > 60 Est GFR (Non-Af Amer) > 60 Random Glucose 139 H Calcium 8.9 Magnesium 1.7 Total Bilirubin 0.4 AST 34 ALT 28 Alkaline Phosphatase 54 Total Protein 6.7 Albumin 3.8 Globulin 2.9 Albumin/Globulin Ratio 1.3 Lipase 48 Urine Color Yellow Urine Appearance Clear Urine pH 6.0 Ur Specific [place] 1.010 Urine Protein Negative Urine Glucose (UA) Negative Urine Ketones Negative Urine Blood Trace-intact H Urine Nitrate Positive H Urine Bilirubin Negative Urine Urobilinogen 0.2 Ur Leukocyte Esterase Negative Urine RBC 2 - 5 H Urine WBC 0 - 2 Ur Epithelial Cells 1 - 3 Urine Bacteria Small 04/22/18 04/22/18 06:00 06:00 WBC 8.4 RBC 3.81 Hgb 11.2 L Hct 33.9 L MCV 89.0 MCH 29.4 MCHC 33.0 RDW 12.8 Plt Count 209 MPV 9.8 Gran % 70.5 H Lymph % (Auto) 23.3 [place] % (Auto) 4.7 Eos % (Auto) 1.3 L Baso % (Auto) 0.2 Gran # 5.90 Lymph # (Auto) 2.0 [place] # (Auto) 0.4 Eos # (Auto) 0.1 Baso # (Auto) 0.02 Sodium 142 Potassium 3.4 L Chloride 110 H Carbon Dioxide 25 Anion Gap 10 BUN 12 Creatinine 0.9 Est GFR ( Amer) > 60 Est GFR (Non-Af Amer) > 60 Random Glucose 111 H Calcium 8.7 Magnesium Total Bilirubin 0.3 AST 26 ALT 26 Alkaline Phosphatase 58 Total Protein 6.9 Albumin 3.9 Globulin 3.0 Albumin/Globulin Ratio 1.3 Lipase Urine Color Urine Appearance Urine pH Ur Specific [place] Urine Protein Urine Glucose (UA) Urine Ketones Urine Blood Urine Nitrate Urine Bilirubin Urine Urobilinogen Ur Leukocyte Esterase Urine RBC Urine WBC Ur Epithelial Cells Urine Bacteria Assessment & Plan - Assessment and Plan (Free Text) Assessment: Patient is an 78yo female with PMHx significant for HTN, hyperlipidemia, PUD, lumbar stenosis s/p surgical repair, osteoarthritis, hepatic cysts and breast cancer who presented to the hospital with complaints of abdominal pain and diarrhea. -Acute diarrheal illness suspect 2/2 colitis -Abnormal imaging of the GI tract - thickened gastric wall with H/O PUD Plan: -Agree with Ceftriaxone/Flagyl as ordered for acute colitis vs enteritis; ischemic colitis in differential though less likely given clinical picture -C diff ordered -Consider addition of stool culture -Await urine culture, U/A showing +Nitrate -OK to start clear liquid diet and advance as tolerated - Date & Time Date: 04/22/18 Time: 08:00 <Matias Ferro V - Last Filed: 04/22/18 22:52> Meds - Medications Medications: Current Medications Acetaminophen (Tylenol 325mg Tab) 650 mg PO Q6H PRN PRN Reason: Pain, moderate (4-7) Ezetimibe (Zetia) 10 mg PO DAILY [facility] Last Admin: 04/22/18 09:20 Dose: 10 mg Enoxaparin Sodium (Lovenox) 40 mg SC DAILY [facility]; Protocol Last Admin: 04/22/18 09:09 Dose: 40 mg Hydrochlorothiazide (Microzide) 12.5 mg PO DAILY [facility] Last Admin: 04/22/18 09:10 Dose: 12.5 mg Metronidazole (Flagyl) 500 mg in 100 mls @ 100 mls/hr IVPB Q8 [facility]; Protocol Last Admin: 04/22/18 21:31 Dose: 100 mls/hr Ceftriaxone Sodium (Rocephin 1 Gram Ivpb) 1 gm in 100 mls @ 100 mls/hr IVPB DAILY [facility]; Protocol Last Admin: 04/22/18 09:19 Dose: 100 mls/hr Potassium Chloride 40 meq/ (Sodium Chloride) 1,020 mls @ 60 mls/hr IV .Q17H [facility] Last Admin: 04/22/18 09:14 Dose: 60 mls/hr Lisinopril (Zestril) 20 mg PO DAILY [facility] Last Admin: 04/22/18 09:19 Dose: 20 mg Morphine Sulfate (Morphine) 2 mg IVP Q4H PRN PRN Reason: Pain, severe (8-10) Last Admin: 04/22/18 19:54 Dose: 2 mg Ondansetron HCl (Zofran Inj) 4 mg IVP Q6H PRN PRN Reason: Nausea/Vomiting Pantoprazole Sodium (Protonix Inj) 40 mg IVP DAILY [facility] Last Admin: 04/22/18 09:14 Dose: 40 mg Tamoxifen Citrate (Nolvadex) 20 mg PO DAILY [facility] Last Admin: 04/22/18 09:11 Dose: 20 mg Zolpidem Tartrate (Ambien) 5 mg PO HS PRN; Protocol PRN Reason: Sleep Last Admin: 04/22/18 21:31 Dose: 5 mg Results - Vital Signs Recent Vital Signs: Last Vital Signs Temp 97.2 F L 04/22/18 21:33 Pulse 66 04/22/18 21:33 Resp 18 04/22/18 21:33 BP 118/60 04/22/18 21:33 Pulse Ox 95 04/22/18 21:33 - Labs Result Diagrams: 04/22/18 06:00 04/22/18 06:00 Labs: Laboratory Results - last 24 hr 04/22/18 04/22/18 06:00 06:00 WBC 8.4 RBC 3.81 Hgb 11.2 L Hct 33.9 L MCV 89.0 MCH 29.4 MCHC 33.0 RDW 12.8 Plt Count 209 MPV 9.8 Gran % 70.5 H Lymph % (Auto) 23.3 [place] % (Auto) 4.7 Eos % (Auto) 1.3 L Baso % (Auto) 0.2 Gran # 5.90 Lymph # (Auto) 2.0 [place] # (Auto) 0.4 Eos # (Auto) 0.1 Baso # (Auto) 0.02 Sodium 142 Potassium 3.4 L Chloride 110 H Carbon Dioxide 25 Anion Gap 10 BUN 12 Creatinine 0.9 Est GFR ( Amer) > 60 Est GFR (Non-Af Amer) > 60 Random Glucose 111 H Calcium 8.7 Total Bilirubin 0.3 AST 26 ALT 26 Alkaline Phosphatase 58 Total Protein 6.9 Albumin 3.9 Globulin 3.0 Albumin/Globulin Ratio 1.3 Attending/Attestation - Attestation I have personally seen and examined this patient.: Yes I have fully participated in the care of the patient.: Yes I have reviewed all pertinent clinical information: Yes Notes (Text): This is an addendum to GI consult report dictated by the GI Fellow. The patient was seen and examined earlier. Medical records, lab studies, imagings were reviewed. Last 24 hours events reviewed. Agreed with the above treatment plan as outlined in GI Fellow 's notes with the addition of the following CT scan was reviewed Complains of mainly lower abdominal pain Episodes of diarrhea before Continue the antibiotics slowly advance the diet Elective colonoscopy evaluation Previous endoscopy and colonoscopy reports were reviewed 04/22/18 22:50
[2018-04-22] MEDS ORDERED: Magnesium Sulfate 1 gm in D5W 1 GM/100 ML BAG IVPB ONE (09:49)
[2018-04-22] MEDS: Morphine 2 mg/ml ISec IVP PRN ×3 (10:38→19:54)
--- NOTE | 2018-04-22 15:19 | CP.PCM.APN ---
Subjective - Date & Time of Evaluation Date of Evaluation: 04/22/18 Time of Evaluation: 10:15 - Subjective Subjective: 78yo female with PMHx significant for HTN, hyperlipidemia, PUD, lumbar stenosis s/p surgical repair, osteoarthritis, hepatic cysts and breast cancer who presented to the hospital with complaints of abdominal pain and diarrhea. -Acute diarrheal illness suspect 2/2 colitis, is admitted with colitis, currently undergoing workup. - Abnormal imaging of the GI tract - thickened gastric wall with H/O PUD Pt. seen and examined at bedside. complaints of lower epigastric pain. Reports 1 episode of diarrhea this am. Denied vomiting, denied eating anything new or different. Review of Systems - Constitutional Constitutional: As Per HPI - EENT Eyes: As Per HPI Ears: As Per HPI Nose/Mouth/Throat: As Per HPI - Breasts Breasts: As Per HPI - Cardiovascular Cardiovascular: As Per HPI - Respiratory Respiratory: As Per HPI - Gastrointestinal Gastrointestinal: As Per HPI, Abdominal Pain, Diarrhea - Genitourinary Genitourinary: As Per HPI - Reproductive: Female Reproductive:Female: As Per HPI - Menstruation Menstruation: As Per HPI - Musculoskeletal Musculoskeletal: As Per HPI - Integumentary Integumentary: As Per HPI - Neurological Neurological: As Per HPI - Endocrine Endocrine: As Per HPI - Hematologic/Lymphatic Hematologic: As Per HPI Objective - Vital Signs/Intake and Output Vital Signs (last 24 hours): Temp Pulse Resp BP Pulse Ox 98.4 F 74 20 149/79 94 L 04/22/18 07:44 04/22/18 09:19 04/22/18 07:44 04/22/18 09:19 04/22/18 07:44 - Medications Medications: Current Medications Acetaminophen (Tylenol 325mg Tab) 650 mg PO Q6H PRN PRN Reason: Pain, moderate (4-7) Ezetimibe (Zetia) 10 mg PO DAILY [facility] Last Admin: 04/22/18 09:20 Dose: 10 mg Enoxaparin Sodium (Lovenox) 40 mg SC DAILY [facility]; Protocol Last Admin: 04/22/18 09:09 Dose: 40 mg Hydrochlorothiazide (Microzide) 12.5 mg PO DAILY [facility] Last Admin: 04/22/18 09:10 Dose: 12.5 mg Metronidazole (Flagyl) 500 mg in 100 mls @ 100 mls/hr IVPB Q8 [facility]; Protocol Last Admin: 04/22/18 13:52 Dose: 100 mls/hr Ceftriaxone Sodium (Rocephin 1 Gram Ivpb) 1 gm in 100 mls @ 100 mls/hr IVPB DAILY [facility]; Protocol Last Admin: 04/22/18 09:19 Dose: 100 mls/hr Potassium Chloride 40 meq/ (Sodium Chloride) 1,020 mls @ 60 mls/hr IV .Q17H [facility] Last Admin: 04/22/18 09:14 Dose: 60 mls/hr Lisinopril (Zestril) 20 mg PO DAILY [facility] Last Admin: 04/22/18 09:19 Dose: 20 mg Morphine Sulfate (Morphine) 2 mg IVP Q4H PRN PRN Reason: Pain, severe (8-10) Last Admin: 04/22/18 14:46 Dose: 2 mg Ondansetron HCl (Zofran Inj) 4 mg IVP Q6H PRN PRN Reason: Nausea/Vomiting Pantoprazole Sodium (Protonix Inj) 40 mg IVP DAILY [facility] Last Admin: 04/22/18 09:14 Dose: 40 mg Tamoxifen Citrate (Nolvadex) 20 mg PO DAILY [facility] Last Admin: 04/22/18 09:11 Dose: 20 mg Zolpidem Tartrate (Ambien) 5 mg PO HS PRN; Protocol PRN Reason: Sleep - Labs Labs: 04/22/18 06:00 04/22/18 06:00 - Constitutional Appears: Well - Head Exam Head Exam: NORMAL INSPECTION - Eye Exam Eye Exam: Normal appearance - ENT Exam ENT Exam: Mucous Membranes Moist - Neck Exam Neck Exam: Normal Inspection - Respiratory Exam Respiratory Exam: Clear to Ausculation Bilateral, NORMAL BREATHING PATTERN - Cardiovascular Exam Cardiovascular Exam: REGULAR RHYTHM, +S1, +S2 - GI/Abdominal Exam GI & Abdominal Exam: Normal Bowel Sounds - Rectal Exam Rectal Exam: Deferred - Extremities Exam Extremities Exam: Full ROM, Normal Inspection - Back Exam Back Exam: NORMAL INSPECTION - Neurological Exam Neurological Exam: Alert, Awake, Oriented x3 - Skin Skin Exam: Dry, Intact, Normal Color, Warm Assessment and Plan - Assessment and Plan (Free Text) Assessment: Impressions Abdomen/Pelvis CT 04/21/18 16:22 IMPRESSION: Findings suggestive of colitis. Please correlate clinically. Contracted gallbladder contains gallstones. No CT evidence of acute cholecystitis. Gastric wall thickening. Heterogeneous mildly enlarged uterus. Urinary bladder wall thickening. Small droplet of air noted in the bladder. Preliminary report was submitted by [facility] contains concordant findings. Laboratory Results WBC 8.4 10^3/uL (4.5-11.0) 04/22/18 06:00 RBC 3.81 10^6/uL (3.5-6.1) 04/22/18 06:00 Hgb 11.2 g/dL (12.0-16.0) L 04/22/18 06:00 Hct 33.9 % (36.0-48.0) L 04/22/18 06:00 MCV 89.0 fl (80.0-105.0) 04/22/18 06:00 MCH 29.4 pg (25.0-35.0) 04/22/18 06:00 MCHC 33.0 g/dl (31.0-37.0) 04/22/18 06:00 RDW 12.8 % (11.5-14.5) 04/22/18 06:00 Plt Count 209 10^3/uL (120.0-450.0) 04/22/18 06:00 MPV 9.8 fl (7.0-11.0) 04/22/18 06:00 Gran % 70.5 % (50.0-68.0) H 04/22/18 06:00 Lymph % (Auto) 23.3 % (22.0-35.0) 04/22/18 06:00 [place] % (Auto) 4.7 % (1.0-6.0) 04/22/18 06:00 Eos % (Auto) 1.3 % (1.5-5.0) L 04/22/18 06:00 Baso % (Auto) 0.2 % (0.0-3.0) 04/22/18 06:00 Gran # 5.90 (1.4-6.5) 04/22/18 06:00 Lymph # (Auto) 2.0 (1.2-3.4) 04/22/18 06:00 [place] # (Auto) 0.4 (0.1-0.6) 04/22/18 06:00 Eos # (Auto) 0.1 (0.0-0.7) 04/22/18 06:00 Baso # (Auto) 0.02 K/mm3 (0.0-2.0) 04/22/18 06:00 Sodium 142 mmol/L (132-148) 04/22/18 06:00 Potassium 3.4 mmol/L (3.6-5.0) L 04/22/18 06:00 Chloride 110 mmol/L (98-107) H 04/22/18 06:00 Carbon Dioxide 25 mmol/L (21-33) 04/22/18 06:00 Anion Gap 10 (10-20) 04/22/18 06:00 BUN 12 mg/dL (7-21) 04/22/18 06:00 Creatinine 0.9 mg/dl (0.7-1.2) 04/22/18 06:00 Est GFR ( Amer) > 60 04/22/18 06:00 Est GFR (Non-Af Amer) > 60 04/22/18 06:00 Random Glucose 111 mg/dL (70-110) H 04/22/18 06:00 Calcium 8.7 mg/dL (8.4-10.5) 04/22/18 06:00 Magnesium 1.7 mg/dL (1.7-2.2) 04/21/18 16:45 Total Bilirubin 0.3 mg/dL (0.2-1.3) 04/22/18 06:00 AST 26 U/L (14-36) 04/22/18 06:00 ALT 26 U/L (7-56) 04/22/18 06:00 Alkaline Phosphatase 58 U/L (38-126) 04/22/18 06:00 Total Protein 6.9 g/dL (5.8-8.3) 04/22/18 06:00 Albumin 3.9 g/dL (3.0-4.8) 04/22/18 06:00 Globulin 3.0 gm/dL 04/22/18 06:00 Albumin/Globulin Ratio 1.3 (1.1-1.8) 04/22/18 06:00 Lipase 48 U/L (23-300) 04/21/18 16:45 Urine Color Yellow (YELLOW) 04/21/18 18:14 Urine Appearance Clear (CLEAR) 04/21/18 18:14 Urine pH 6.0 (4.7-8.0) 04/21/18 18:14 Ur Specific [place] 1.010 (1.005-1.035) 04/21/18 18:14 Urine Protein Negative mg/dL (<30 mg/dL) 04/21/18 18:14 Urine Glucose (UA) Negative mg/dL (NEGATIVE) 04/21/18 18:14 Urine Ketones Negative mg/dL (NEGATIVE) 04/21/18 18:14 Urine Blood Trace-intact (NEGATIVE) H 04/21/18 18:14 Urine Nitrate Positive (NEGATIVE) H 04/21/18 18:14 Urine Bilirubin Negative (NEGATIVE) 04/21/18 18:14 Urine Urobilinogen 0.2 E.U./dL (<1 E.U./dL) 04/21/18 18:14 Ur Leukocyte Esterase Negative Marissa/uL (NEGATIVE) 04/21/18 18:14 Urine RBC 2 - 5 /hpf (0-2) H 04/21/18 18:14 Urine WBC 0 - 2 /hpf (0-6) 04/21/18 18:14 Ur Epithelial Cells 1 - 3 /hpf (0-5) 04/21/18 18:14 Urine Bacteria Small /hpf (NONE) 04/21/18 18:14 1. Abdominal Pain secondary to colitis Continue IV antibiotics per GI, awaiting stool cx, awaiting results of stool for CDiff Morphine prn for pain control. Currently on clear liquid diet , to be advanced as per GI 2. Diarrhea, likely secondary to colitis. Awaiting stool for CDiff, and stool culture Consider DC home, after medical, GI clearance. will continue to monitor clinical status and follow closely.
[2018-04-23] MEDS: metroNIDAZOLE IV 500 mg/100 ml 500 MG/100 ML BAG IVPB SCH ×3 (06:14→22:07)
[2018-04-23 06:42] VITALS: RESP 20
[2018-04-23 07:11] LABS: BASO # 0.02 K/mm3 (0.0-2.0); BASO % 0.4 % (0.0-3.0); EOS # 0.1 (0.0-0.7); EOS % 2.3 % (1.5-5.0); GRAN # 3.19 (1.4-6.5); GRAN % 55.9 % (50.0-68.0); HEMOGLOBIN 10.2 g/dL (12.0-16.0); LYMPH # 1.9 (1.2-3.4); LYMPH % 33.7 % (22.0-35.0); MEAN CELL VOLUME 90.1 fl (80.0-105.0); MEAN CORPUSCULAR HEMOGLOBIN 29.7 pg (25.0-35.0); MEAN CORPUSCULAR HGB CONC 32.9 g/dl (31.0-37.0); MEAN PLATELET VOLUME 9.6 fl (7.0-11.0); MONO # 0.4 (0.1-0.6); MONO % 7.7 % (1.0-6.0); RBC 3.44 10^6/uL (3.5-6.1); WHITE BLOOD COUNT 5.7 10^3/uL (4.5-11.0)
[2018-04-23 07:41] LABS: ALB/GLOB RATIO 1.2 (1.1-1.8); ALBUMIN 3.3 g/dL (3.0-4.8); ALT/SGPT 28 U/L (7-56); AST/SGOT 26 U/L (14-36); BLOOD UREA NITROGEN 8 mg/dL (7-21); CALCIUM 8.1 mg/dL (8.4-10.5); GFR NON-AFRICAN AMERICAN > 60
[2018-04-23] MEDS ORDERED: Potassium Chloride 20 mEq ER Tab PO STA (07:57)
[2018-04-23] MEDS: Enoxaparin 40 mg Syringe SC SCH (09:02)
[2018-04-23] MEDS: cefTRIAXone 1 gm 1 GM/100 ML BAG IVPB SCH (09:05)
[2018-04-23] MEDS: Morphine 2 mg/ml ISec IVP PRN ×3 (09:54→20:20)
--- NOTE | 2018-04-23 12:31 | CP.PCM.PN ---
Subjective - Date & Time of Evaluation Date of Evaluation: 04/23/18 Time of Evaluation: 07:25 - Subjective Subjective: General Surgery Progress note for Dr. Askew Patient seen and examined this am at bedside. JULIETA per nursing. Patient states that she is continuing to have diarrhea but less than before. She states her abdominal pain is improving. She otherwise denies LINDSEY, CP, SOB, n/v, f/c, bloody stool and extremity pain/weakness. Objective - Vital Signs/Intake and Output Vital Signs (last 24 hours): Temp Pulse Resp BP Pulse Ox 98.1 F 69 20 145/69 93 L 04/23/18 06:00 04/23/18 09:06 04/23/18 06:00 04/23/18 09:06 04/23/18 06:00 Intake and Output: 04/23/18 04/23/18 06:59 18:59 Intake Total 720 Balance 720 - Medications Medications: Current Medications Acetaminophen (Tylenol 325mg Tab) 650 mg PO Q6H PRN PRN Reason: Pain, moderate (4-7) Ezetimibe (Zetia) 10 mg PO DAILY [facility] Last Admin: 04/23/18 09:06 Dose: 10 mg Enoxaparin Sodium (Lovenox) 40 mg SC DAILY [facility]; Protocol Last Admin: 04/23/18 09:02 Dose: 40 mg Hydrochlorothiazide (Microzide) 12.5 mg PO DAILY [facility] Last Admin: 04/23/18 09:03 Dose: 12.5 mg Metronidazole (Flagyl) 500 mg in 100 mls @ 100 mls/hr IVPB Q8 [facility]; Protocol Last Admin: 04/23/18 06:14 Dose: 100 mls/hr Ceftriaxone Sodium (Rocephin 1 Gram Ivpb) 1 gm in 100 mls @ 100 mls/hr IVPB DAILY [facility]; Protocol Last Admin: 04/23/18 09:05 Dose: 100 mls/hr Lisinopril (Zestril) 20 mg PO DAILY [facility] Last Admin: 04/23/18 09:06 Dose: 20 mg Morphine Sulfate (Morphine) 2 mg IVP Q4H PRN PRN Reason: Pain, severe (8-10) Last Admin: 04/23/18 09:54 Dose: 2 mg Ondansetron HCl (Zofran Inj) 4 mg IVP Q6H PRN PRN Reason: Nausea/Vomiting Pantoprazole Sodium (Protonix Inj) 40 mg IVP DAILY [facility] Last Admin: 04/23/18 09:05 Dose: 40 mg Tamoxifen Citrate (Nolvadex) 20 mg PO DAILY [facility] Last Admin: 04/23/18 09:53 Dose: 20 mg Zolpidem Tartrate (Ambien) 5 mg PO HS PRN; Protocol PRN Reason: Sleep Last Admin: 04/22/18 21:31 Dose: 5 mg - Labs Labs: 04/23/18 06:00 04/23/18 06:00 - Constitutional Appears: Well, Non-toxic, No Acute Distress - Head Exam Head Exam: ATRAUMATIC, NORMOCEPHALIC - Eye Exam Eye Exam: EOMI - ENT Exam ENT Exam: Mucous Membranes Moist - Respiratory Exam Respiratory Exam: NORMAL BREATHING PATTERN - Cardiovascular Exam Cardiovascular Exam: REGULAR RHYTHM - GI/Abdominal Exam GI & Abdominal Exam: Soft. absent: Distended, Guarding, Tenderness - Extremities Exam Extremities Exam: absent: Calf Tenderness, Pedal Edema - Neurological Exam Neurological Exam: Alert, Awake, Oriented x3 - Psychiatric Exam Psychiatric exam: Normal Affect, Normal Mood - Skin Skin Exam: Dry, Intact, Normal Color, Warm Assessment and Plan - Assessment and Plan (Free Text) Assessment: 78 yr old female with colitis Plan: IVF NPO pain control Zofran PRN Cdiff toxin/antigen pending diet as per GI recs no need for surgical intervention at this time discussed with Dr. Jamilah Landeros, PGY 1
--- NOTE | 2018-04-23 14:05 | CP.PCM.PN ---
<Dhiraj Fofana - Last Filed: 04/23/18 14:00> Subjective - Date & Time of Evaluation Date of Evaluation: 04/23/18 Time of Evaluation: 11:40 - Subjective Subjective: PGY-4 GI Fellow Prog Note Pt sitting up in bed when seen this AM. She states some transient abd pain this AM but denied any currently, only 2 loose BMs overnight. States tolerated diet and would like it advanced. 5 point ROS negative other than stated above Objective - Vital Signs/Intake and Output Vital Signs (last 24 hours): Temp Pulse Resp BP Pulse Ox 98.1 F 69 20 145/69 93 L 04/23/18 06:00 04/23/18 09:06 04/23/18 06:00 04/23/18 09:06 04/23/18 06:00 Intake and Output: 04/23/18 04/23/18 06:59 18:59 Intake Total 720 Balance 720 - Medications Medications: Current Medications Acetaminophen (Tylenol 325mg Tab) 650 mg PO Q6H PRN PRN Reason: Pain, moderate (4-7) Ezetimibe (Zetia) 10 mg PO DAILY [facility] Last Admin: 04/23/18 09:06 Dose: 10 mg Enoxaparin Sodium (Lovenox) 40 mg SC DAILY [facility]; Protocol Last Admin: 04/23/18 09:02 Dose: 40 mg Hydrochlorothiazide (Microzide) 12.5 mg PO DAILY [facility] Last Admin: 04/23/18 09:03 Dose: 12.5 mg Metronidazole (Flagyl) 500 mg in 100 mls @ 100 mls/hr IVPB Q8 [facility]; Protocol Last Admin: 04/23/18 13:52 Dose: 100 mls/hr Ceftriaxone Sodium (Rocephin 1 Gram Ivpb) 1 gm in 100 mls @ 100 mls/hr IVPB DAILY [facility]; Protocol Last Admin: 04/23/18 09:05 Dose: 100 mls/hr Lisinopril (Zestril) 20 mg PO DAILY [facility] Last Admin: 04/23/18 09:06 Dose: 20 mg Morphine Sulfate (Morphine) 2 mg IVP Q4H PRN PRN Reason: Pain, severe (8-10) Last Admin: 04/23/18 13:52 Dose: 2 mg Ondansetron HCl (Zofran Inj) 4 mg IVP Q6H PRN PRN Reason: Nausea/Vomiting Pantoprazole Sodium (Protonix Inj) 40 mg IVP DAILY [facility] Last Admin: 04/23/18 09:05 Dose: 40 mg Tamoxifen Citrate (Nolvadex) 20 mg PO DAILY [facility] Last Admin: 04/23/18 09:53 Dose: 20 mg Zolpidem Tartrate (Ambien) 5 mg PO HS PRN; Protocol PRN Reason: Sleep Last Admin: 04/22/18 21:31 Dose: 5 mg - Labs Labs: 04/23/18 06:00 04/23/18 06:00 - Constitutional Appears: Well, No Acute Distress - Head Exam Head Exam: ATRAUMATIC, NORMAL INSPECTION - Eye Exam Eye Exam: EOMI. absent: Scleral icterus - ENT Exam ENT Exam: Mucous Membranes Moist. absent: Mucous Membranes Dry - Respiratory Exam Respiratory Exam: NORMAL BREATHING PATTERN. absent: Accessory Muscle Use, Respiratory Distress - GI/Abdominal Exam GI & Abdominal Exam: Distended (minimally), Soft, Normal Bowel Sounds. absent: Bruit, Firm, Guarding, Rigid, Tenderness, Mass, Organomegaly, Pulsatile Mass Assessment and Plan - Assessment and Plan (Free Text) Assessment: 78yo female with PMHx significant for HTN, hyperlipidemia, PUD, lumbar stenosis s/p surgical repair, osteoarthritis, hepatic cysts and breast cancer who p resented to the hospital with complaints of abdominal pain and diarrhea. -Acute diarrheal illness suspect 2/2 colitis -Abnormal imaging of the GI tract - thickened gastric wall with H/O PUD Plan: - Cont ceftriaxone/metronidazole for acute colitis vs enteritis; ischemic co litis in differential though less likely given clinical picture - Can complete short course of PO antibiotics and plan to f/u stool studies - F/u Cdiff, stool Cx, O&P - CLD to heart healthy diet today Pt discussed with Dr. Ferro; please see attestation for further recs/changes Dhiraj Fofana, PGY-4 <Matias Ferro V - Last Filed: 04/23/18 23:09> Objective - Vital Signs/Intake and Output Vital Signs (last 24 hours): Temp Pulse Resp BP Pulse Ox 98.2 F 63 20 134/55 L 97 04/23/18 16:57 04/23/18 16:57 04/23/18 16:57 04/23/18 16:57 04/23/18 16:57 Intake and Output: 04/23/18 04/24/18 18:59 06:59 Intake Total 540 Balance 540 - Medications Medications: Current Medications Acetaminophen (Tylenol 325mg Tab) 650 mg PO Q6H PRN PRN Reason: Pain, moderate (4-7) Ezetimibe (Zetia) 10 mg PO DAILY [facility] Last Admin: 04/23/18 09:06 Dose: 10 mg Enoxaparin Sodium (Lovenox) 40 mg SC DAILY [facility]; Protocol Last Admin: 04/23/18 09:02 Dose: 40 mg Hydrochlorothiazide (Microzide) 12.5 mg PO DAILY [facility] Last Admin: 04/23/18 09:03 Dose: 12.5 mg Metronidazole (Flagyl) 500 mg in 100 mls @ 100 mls/hr IVPB Q8 [facility]; Protocol Last Admin: 04/23/18 22:07 Dose: 100 mls/hr Ceftriaxone Sodium (Rocephin 1 Gram Ivpb) 1 gm in 100 mls @ 100 mls/hr IVPB DAILY [facility]; Protocol Last Admin: 04/23/18 09:05 Dose: 100 mls/hr Lisinopril (Zestril) 20 mg PO DAILY [facility] Last Admin: 04/23/18 09:06 Dose: 20 mg Morphine Sulfate (Morphine) 2 mg IVP Q4H PRN PRN Reason: Pain, severe (8-10) Last Admin: 04/23/18 20:20 Dose: 2 mg Ondansetron HCl (Zofran Inj) 4 mg IVP Q6H PRN PRN Reason: Nausea/Vomiting Pantoprazole Sodium (Protonix Inj) 40 mg IVP DAILY [facility] Last Admin: 04/23/18 09:05 Dose: 40 mg Tamoxifen Citrate (Nolvadex) 20 mg PO DAILY [facility] Last Admin: 04/23/18 09:53 Dose: 20 mg Zolpidem Tartrate (Ambien) 5 mg PO HS PRN; Protocol PRN Reason: Sleep Last Admin: 04/23/18 22:06 Dose: 5 mg - Labs Labs: 04/23/18 06:00 04/23/18 06:00 Attending/Attestation - Attestation I have personally seen and examined this patient.: Yes I have fully participated in the care of the patient.: Yes I have reviewed all pertinent clinical information, including history, physical exam and plan: Yes Notes (Text): p 04/23/18 23:09
--- NOTE | 2018-04-23 16:36 | CP.PCM.PN ---
<Clint Jin - Last Filed: 04/23/18 16:31> Subjective - Date & Time of Evaluation Date of Evaluation: 04/23/18 Time of Evaluation: 16:31 - Subjective Subjective: Clint Jin DO PGY1 - Internal Medicine Business Management Intern - Medicine Progress Note Patient was seen and examined at bedside; no acute events overnight. Patient tolerating CLD well w/o abd pain, n/v; still reports having diarrhea this morning Denies CP, SOB. No further complaints voiced this morning Objective - Vital Signs/Intake and Output Vital Signs (last 24 hours): Temp Pulse Resp BP Pulse Ox 98.1 F 69 20 145/69 93 L 04/23/18 06:00 04/23/18 09:06 04/23/18 06:00 04/23/18 09:06 04/23/18 06:00 Intake and Output: 04/23/18 04/23/18 06:59 18:59 Intake Total 720 Balance 720 - Medications Medications: Current Medications Acetaminophen (Tylenol 325mg Tab) 650 mg PO Q6H PRN PRN Reason: Pain, moderate (4-7) Ezetimibe (Zetia) 10 mg PO DAILY [facility] Last Admin: 04/23/18 09:06 Dose: 10 mg Enoxaparin Sodium (Lovenox) 40 mg SC DAILY [facility]; Protocol Last Admin: 04/23/18 09:02 Dose: 40 mg Hydrochlorothiazide (Microzide) 12.5 mg PO DAILY [facility] Last Admin: 04/23/18 09:03 Dose: 12.5 mg Metronidazole (Flagyl) 500 mg in 100 mls @ 100 mls/hr IVPB Q8 [facility]; Protocol Last Admin: 04/23/18 13:52 Dose: 100 mls/hr Ceftriaxone Sodium (Rocephin 1 Gram Ivpb) 1 gm in 100 mls @ 100 mls/hr IVPB DAILY [facility]; Protocol Last Admin: 04/23/18 09:05 Dose: 100 mls/hr Lisinopril (Zestril) 20 mg PO DAILY [facility] Last Admin: 04/23/18 09:06 Dose: 20 mg Morphine Sulfate (Morphine) 2 mg IVP Q4H PRN PRN Reason: Pain, severe (8-10) Last Admin: 04/23/18 13:52 Dose: 2 mg Ondansetron HCl (Zofran Inj) 4 mg IVP Q6H PRN PRN Reason: Nausea/Vomiting Pantoprazole Sodium (Protonix Inj) 40 mg IVP DAILY [facility] Last Admin: 04/23/18 09:05 Dose: 40 mg Tamoxifen Citrate (Nolvadex) 20 mg PO DAILY [facility] Last Admin: 04/23/18 09:53 Dose: 20 mg Zolpidem Tartrate (Ambien) 5 mg PO HS PRN; Protocol PRN Reason: Sleep Last Admin: 04/22/18 21:31 Dose: 5 mg - Labs Labs: 04/23/18 06:00 04/23/18 06:00 - Constitutional Appears: Well, Non-toxic, No Acute Distress - Head Exam Head Exam: ATRAUMATIC, NORMOCEPHALIC - Eye Exam Eye Exam: EOMI, Normal appearance, PERRL - ENT Exam ENT Exam: Mucous Membranes Moist - Respiratory Exam Respiratory Exam: Clear to Ausculation Bilateral, NORMAL BREATHING PATTERN - Cardiovascular Exam Cardiovascular Exam: REGULAR RHYTHM, RRR, +S1, +S2 - GI/Abdominal Exam GI & Abdominal Exam: Soft, Tenderness - Extremities Exam Extremities Exam: Normal Capillary Refill, Normal Inspection - Neurological Exam Neurological Exam: Alert, Awake, CN II-XII Intact - Psychiatric Exam Psychiatric exam: Normal Affect, Normal Mood - Skin Skin Exam: Dry, Intact, Normal Color, Warm Assessment and Plan - Assessment and Plan (Free Text) Assessment: 78F w/ PMH HTN, HLD, Cataracts, OA, Spinal Stenosis, Herniated disk, partial colectomy, GERD, and inguinal hernia - presented to the ED w/ c/o of worsening a bd pain as well as diarrhea. Patient found to have pancolitis/ colitis on CTAP. Patient admitted for workup and treatment of pancolitis. Plan: Pancolitis 04/21 CT AP - Colitis + Contracted Gall Blladder Patient tolerated CLD well throughout the day; will advance to [facility] today C/w Rocephin/Flagyll C/w Zofran PRN N/V C/w Morphine 2mg IVP Q4 PRN Severe pain Stool Cx pending CDiff negative GI Following appreciate recs No need for surgical intervention at this time as per surgery Diarrhea F/u Stool studies - Cx O&P CDiff negative Appropriately hydrate patient/ Supportive care Hx HLD C/w Home zetia Hx HTN Normotensive C/w Home HCTZ, Lisiniopril Hx R Breast CA s/p Masectomy C/w home tamoxifen Hx Insomnia C/w Home ambien PPX: Protonix IVP Lovenox Patient was seen, examined, discussed w/ attending Dr. Brandee Jin DO PGY1 - Internal Medicine Business Management Intern - Medicine Progress Note <Brandee Jin R - Last Filed: 04/25/18 16:07> Objective - Vital Signs/Intake and Output Vital Signs (last 24 hours): Temp Pulse Resp BP Pulse Ox 97.6 F 68 20 159/84 H 98 04/24/18 06:00 04/24/18 06:00 04/24/18 06:00 04/24/18 06:00 04/24/18 06:00 - Labs Labs: 04/24/18 06:30 04/24/18 06:30 Attending/Attestation - Attestation I have personally seen and examined this patient.: Yes I have fully participated in the care of the patient.: Yes I have reviewed all pertinent clinical information, including history, physical exam and plan: Yes Notes (Text): Patient seen and examined by me with resident at 8:45 AM on 04/23/18. Case including HPI, physical exam, and assessment and plan discussed with resident. Agree with above with following additions/corrections. Patient is an 78 year old female with past medical history significant for hypertension, hyperlipidemia, cataracts, osteoarthritis, spinal stenosis, herniated disk, partial colectomy, GERD, and inguinal hernia that presented to the emergency room for worsening of abdominal pain. Patient states she is feeling better. States she is still having some left lower quadrant abdominal pain. Pain is crampy and comes and goes. Pain medications are helping. No radiation of the pain. No shortness of breath or chest pain. No nausea or vomiting. Patient is tolerating liquids. Patient also still with diarrhea. No dizziness, headaches, or lightheadedness. No dysuria. No fevers or chills. Physical exam: General: Awake and alert sitting up in bed in no acute distress HEENT: Normocephalic, atraumatic. Extraocular muscles intact, pupils equal and reactive, No scleral icterus. Oropharynx is pink and moist. Neck is supple. Cardiovascular: Regular rhythm. Normal S1 and S2. No murmurs, rubs, or gallops appreciated Pulmonary: Normal respiratory effort. No rhonchi, rales, or wheezing appreciated. Gastrointestinal: Soft. Nontender. Positive left lower quadrant tenderness. Positive bowel sounds all 4 quadrants. No guarding. Musculoskeletal: Moves all extremities. No edema appreciated. No calf tenderness. No CVA tenderness. Central nervous system: AAOx 3 Dermatologic: Skin warm and dry. Assessment and plan: Patient is an 78 year old female with past medical history significant for hypertension, hyperlipidemia, cataracts, osteoarthritis, spinal stenosis, herniated disk, partial colectomy, GERD, and inguinal hernia that presented to the emergency room for worsening of abdominal pain. 1. Abdominal pain. Pancolitis. Diarrhea. CT abd/pelvis per radiologist showed findings suggestive of colitis, contracted gallbladder contains gallstones, no evidence of acute cholecystitis, gastric wall thickening, heterogenous mildly enlarged uterus, urinary bladder wall thickening, small droplet of air noted in the bladder. Continue Rocephin and Flagyl. Advance diet per GI. GI following, recommendations appreciated. Stool studies pending. Cdiff negative. Continue with pain management. 2. Hyperlipidemia. Continue Zetia. 3. Essential Hypertension. Continue HCTZ and lisinopril 4. History of breast cancer s/p mastectomy. Continue Tamoxifen 5. Insomnia. Continue ambien 6. GI/DVT prophylaxis. Protonix/lovenox 7. Patient is a full code. Case was discussed in detail with the patient and patients daughter at bedside regarding current diagnosis and treatment plan. All questions answered.
[2018-04-24] MEDS: metroNIDAZOLE IV 500 mg/100 ml 500 MG/100 ML BAG IVPB SCH (05:29)
--- NOTE | 2018-04-24 06:15 | CP.PCM.PN ---
Subjective - Date & Time of Evaluation Date of Evaluation: 04/24/18 Time of Evaluation: 07:25 - Subjective Subjective: General Surgery Progress note for Dr. Askew Patient seen and examined this am at bedside. JULIETA per nursing. Patient denies abdominal pain but endorses 1-2 loose BM overnight. She otherwise denies LINDSEY, CP, SOB, n/v, f/c, bloody stool and extremity pain/weakness. Objective - Vital Signs/Intake and Output Vital Signs (last 24 hours): Temp Pulse Resp BP Pulse Ox 98.2 F 63 20 134/55 L 97 04/23/18 16:57 04/23/18 16:57 04/23/18 16:57 04/23/18 16:57 04/23/18 16:57 Intake and Output: 04/23/18 04/24/18 18:59 06:59 Intake Total 540 Balance 540 - Medications Medications: Current Medications Acetaminophen (Tylenol 325mg Tab) 650 mg PO Q6H PRN PRN Reason: Pain, moderate (4-7) Ezetimibe (Zetia) 10 mg PO DAILY [facility] Last Admin: 04/23/18 09:06 Dose: 10 mg Enoxaparin Sodium (Lovenox) 40 mg SC DAILY [facility]; Protocol Last Admin: 04/23/18 09:02 Dose: 40 mg Hydrochlorothiazide (Microzide) 12.5 mg PO DAILY [facility] Last Admin: 04/23/18 09:03 Dose: 12.5 mg Metronidazole (Flagyl) 500 mg in 100 mls @ 100 mls/hr IVPB Q8 [facility]; Protocol Last Admin: 04/24/18 05:29 Dose: 100 mls/hr Ceftriaxone Sodium (Rocephin 1 Gram Ivpb) 1 gm in 100 mls @ 100 mls/hr IVPB DA JUAQUIN [facility]; Protocol Last Admin: 04/23/18 09:05 Dose: 100 mls/hr Lisinopril (Zestril) 20 mg PO DAILY [facility] Last Admin: 04/23/18 09:06 Dose: 20 mg Morphine Sulfate (Morphine) 2 mg IVP Q4H PRN PRN Reason: Pain, severe (8-10) Last Admin: 04/23/18 20:20 Dose: 2 mg Ondansetron HCl (Zofran Inj) 4 mg IVP Q6H PRN PRN Reason: Nausea/Vomiting Pantoprazole Sodium (Protonix Inj) 40 mg IVP DAILY [facility] Last Admin: 04/23/18 09:05 Dose: 40 mg Tamoxifen Citrate (Nolvadex) 20 mg PO DAILY [facility] Last Admin: 04/23/18 09:53 Dose: 20 mg Zolpidem Tartrate (Ambien) 5 mg PO HS PRN; Protocol PRN Reason: Sleep Last Admin: 04/23/18 22:06 Dose: 5 mg - Labs Labs: 04/23/18 06:00 04/23/18 06:00 - Constitutional Appears: Well, Non-toxic, No Acute Distress - Head Exam Head Exam: ATRAUMATIC, NORMOCEPHALIC - Eye Exam Eye Exam: EOMI - ENT Exam ENT Exam: Mucous Membranes Moist - Respiratory Exam Respiratory Exam: NORMAL BREATHING PATTERN - Cardiovascular Exam Cardiovascular Exam: REGULAR RHYTHM - GI/Abdominal Exam GI & Abdominal Exam: Soft. absent: Distended, Guarding, Tenderness - Extremities Exam Extremities Exam: absent: Calf Tenderness, Pedal Edema - Neurological Exam Neurological Exam: Alert, Awake, Oriented x3 - Psychiatric Exam Psychiatric exam: Normal Affect, Normal Mood - Skin Skin Exam: Dry, Intact, Normal Color, Warm Assessment and Plan - Assessment and Plan (Free Text) Assessment: 78 yr old female with colitis Plan: tolerating regular diet pain control Zofran PRN Cdiff toxin/antigennegative no need for surgical intervention at this time discussed with Dr. Jamilah Landeros, PGY 1
[2018-04-24 07:11] LABS: BASO # 0.04 K/mm3 (0.0-2.0); BASO % 0.6 % (0.0-3.0); EOS # 0.2 (0.0-0.7); EOS % 3.1 % (1.5-5.0); GRAN # 3.84 (1.4-6.5); GRAN % 60.5 % (50.0-68.0); HEMOGLOBIN 12.1 g/dL (12.0-16.0); LYMPH # 1.9 (1.2-3.4); LYMPH % 30.4 % (22.0-35.0); MEAN CELL VOLUME 89.8 fl (80.0-105.0); MEAN CORPUSCULAR HEMOGLOBIN 29.5 pg (25.0-35.0); MEAN CORPUSCULAR HGB CONC 32.9 g/dl (31.0-37.0); MEAN PLATELET VOLUME 9.8 fl (7.0-11.0); MONO # 0.3 (0.1-0.6); MONO % 5.4 % (1.0-6.0); RBC 4.1 10^6/uL (3.5-6.1); RED CELL DISTRIBUTION WIDTH 12.9 % (11.5-14.5); WHITE BLOOD COUNT 6.4 10^3/uL (4.5-11.0)
[2018-04-24 07:14] VITALS: BP 159/84; PULSE 68; TEMP 97.6; O2SAT 98
[2018-04-24 07:28] LABS: ALB/GLOB RATIO 1.3 (1.1-1.8); ALBUMIN 3.8 g/dL (3.0-4.8); ALT/SGPT 40 U/L (7-56); AST/SGOT 25 U/L (14-36); BLOOD UREA NITROGEN 7 mg/dL (7-21); CALCIUM 8.6 mg/dL (8.4-10.5); GFR NON-AFRICAN AMERICAN > 60
[2018-04-24] MEDS: cefTRIAXone 1 gm 1 GM/100 ML BAG IVPB SCH (09:10)
[2018-04-24] MEDS: Enoxaparin 40 mg Syringe SC SCH (09:10)
[2018-04-24] MEDS: Morphine 2 mg/ml ISec IVP PRN (09:22)
--- NOTE | 2018-04-24 23:22 | CP.PCM.DIS ---
Provider - Provider Date of Admission: 04/21/18 21:01 Attending physician: Brandee Jin DO Primary care physician: Dr. Eduardo Curtis Consults: 04/22/18 01:17 Gastroenterology Consult Routine Comment: Consulting Provider: Matias Ferro V Consulting Physician: Matias Ferro V Reason for Consult: Pancolitis 04/22/18 06:00 General Surgery Consult ROUTINE AM Comment: Consulting Provider: Joss Askew Consulting Physician: Joss Askew Reason for Consult: pancolitis w/ h/o umbilical hernia Time Spent in preparation of Discharge (in minutes): 45 Diagnosis - Discharge Diagnosis (1) Diarrhea Status: Acute (2) Pancolitis Status: Acute Hospital Course - Lab Results Lab Results: Micro Results 04/22/18 06:00 Blood Blood Culture - Preliminary NO GROWTH AFTER 48 HOURS 04/23/18 07:00 Stool C. difficile Antigen & Toxins A,B - Final 04/21/18 23:25 Urine,Clean Catch Urine Culture - Final <10,000 CFU/ML. MULTIPLE SPECIES. PROBABLE CONTAMINATION. Most Recent Lab Values WBC 6.4 10^3/uL (4.5-11.0) 04/24/18 06:30 RBC 4.10 10^6/uL (3.5-6.1) 04/24/18 06:30 Hgb 12.1 g/dL (12.0-16.0) 04/24/18 06:30 Hct 36.8 % (36.0-48.0) 04/24/18 06:30 MCV 89.8 fl (80.0-105.0) 04/24/18 06:30 MCH 29.5 pg (25.0-35.0) 04/24/18 06:30 MCHC 32.9 g/dl (31.0-37.0) 04/24/18 06:30 RDW 12.9 % (11.5-14.5) 04/24/18 06:30 Plt Count 200 10^3/uL (120.0-450.0) 04/24/18 06:30 MPV 9.8 fl (7.0-11.0) 04/24/18 06:30 Gran % 60.5 % (50.0-68.0) 04/24/18 06:30 Lymph % (Auto) 30.4 % (22.0-35.0) 04/24/18 06:30 Price % (Auto) 5.4 % (1.0-6.0) 04/24/18 06:30 Eos % (Auto) 3.1 % (1.5-5.0) 04/24/18 06:30 Baso % (Auto) 0.6 % (0.0-3.0) 04/24/18 06:30 Gran # 3.84 (1.4-6.5) 04/24/18 06:30 Lymph # (Auto) 1.9 (1.2-3.4) 04/24/18 06:30 Price # (Auto) 0.3 (0.1-0.6) 04/24/18 06:30 Eos # (Auto) 0.2 (0.0-0.7) 04/24/18 06:30 Baso # (Auto) 0.04 K/mm3 (0.0-2.0) 04/24/18 06:30 Sodium 142 mmol/L (132-148) 04/24/18 06:30 Potassium 4.0 mmol/L (3.6-5.0) 04/24/18 06:30 Chloride 110 mmol/L (98-107) H 04/24/18 06:30 Carbon Dioxide 26 mmol/L (21-33) 04/24/18 06:30 Anion Gap 10 (10-20) 04/24/18 06:30 BUN 7 mg/dL (7-21) 04/24/18 06:30 Creatinine 0.8 mg/dl (0.7-1.2) 04/24/18 06:30 Est GFR ( Amer) > 60 04/24/18 06:30 Est GFR (Non-Af Amer) > 60 04/24/18 06:30 Random Glucose 112 mg/dL (70-110) H 04/24/18 06:30 Calcium 8.6 mg/dL (8.4-10.5) 04/24/18 06:30 Phosphorus 2.7 mg/dL (2.5-4.5) 04/23/18 06:00 Magnesium 2.0 mg/dL (1.7-2.2) 04/23/18 06:00 Total Bilirubin 0.3 mg/dL (0.2-1.3) 04/24/18 06:30 AST 25 U/L (14-36) 04/24/18 06:30 ALT 40 U/L (7-56) 04/24/18 06:30 Alkaline Phosphatase 53 U/L (38-126) 04/24/18 06:30 Total Protein 6.7 g/dL (5.8-8.3) 04/24/18 06:30 Albumin 3.8 g/dL (3.0-4.8) 04/24/18 06:30 Globulin 2.9 gm/dL 04/24/18 06:30 Albumin/Globulin Ratio 1.3 (1.1-1.8) 04/24/18 06:30 Lipase 48 U/L (23-300) 04/21/18 16:45 Urine Color Yellow (YELLOW) 04/21/18 18:14 Urine Appearance Clear (CLEAR) 04/21/18 18:14 Urine pH 6.0 (4.7-8.0) 04/21/18 18:14 Ur Specific [place] 1.010 (1.005-1.035) 04/21/18 18:14 Urine Protein Negative mg/dL (<30 mg/dL) 04/21/18 18:14 Urine Glucose (UA) Negative mg/dL (NEGATIVE) 04/21/18 18:14 Urine Ketones Negative mg/dL (NEGATIVE) 04/21/18 18:14 Urine Blood Trace-intact (NEGATIVE) H 04/21/18 18:14 Urine Nitrate Positive (NEGATIVE) H 04/21/18 18:14 Urine Bilirubin Negative (NEGATIVE) 04/21/18 18:14 Urine Urobilinogen 0.2 E.U./dL (<1 E.U./dL) 04/21/18 18:14 Ur Leukocyte Esterase Negative Marissa/uL (NEGATIVE) 04/21/18 18:14 Urine RBC 2 - 5 /hpf (0-2) H 04/21/18 18:14 Urine WBC 0 - 2 /hpf (0-6) 04/21/18 18:14 Ur Epithelial Cells 1 - 3 /hpf (0-5) 04/21/18 18:14 Urine Bacteria Small /hpf (NONE) 04/21/18 18:14 - Hospital Course Hospital Course: Clint Jin DO PGy1 Internal Medicine Rn Community - Medicine DC Summary Disclaimer: please note this is a brief synopsis of the patient's hospital course; for full hospital record please refer to EMR 78F w/ PMH HTN, HLD, Cataracts, OA, Spinal Stenosis, Herniated disk, partial colectomy, GERD, and inguinal hernia - presented to [facility] [place] ED on 04/21 w/ c/o of worsening abd pain as well as diarrhea. CTAP performed in ED showed colitis, contracted gallbladder contains gallstones, no evidence of acute cholecystitis, gastric wall thickening. Patient was subsequently admitted inpatient for management of pancolitis and workup of diarrhea. GI and Surgical services were consulted. Patient was started on IV antibiotics, and initally made NPO. During hospital course patient reported improvement in abdominal pain, and diarrhea. Her diet was advanced as tolerated, and stool studies were sent. Patient tested negative for CDiff, and as per GI patient most likely had infectious etiology as source of colitis. Patient was further managed w/ antiemetics as well as pain rx PRN. From a surgical standpoint, no acute intervention was required during hospitalization. Morning prior to discharge patient's abdominal pain was transient, with significant improvement from presentation. She was tolerating diet well, afebrile, denied n/v. She did report loose stools. From a GI standpoint, no further inpatient management required and patient may be discharged w/ PO abx. Patient was DC w/ rx for PO ABX, Pain Rx. Medications were reviewed, follow up plan w/ primary care, and outpt GI follow up were reviewed with patient. Patient is medically optimized for discharge home at this time. Discharge Exam - Head Exam Head Exam: ATRAUMATIC, NORMOCEPHALIC - Eye Exam Eye Exam: EOMI, Normal appearance, PERRL. absent: Scleral icterus - ENT Exam ENT Exam: Mucous Membranes Moist - Respiratory Exam Respiratory Exam: Clear to PA & Lateral, NORMAL BREATHING PATTERN, UNREMARKABLE - GI/Abdominal Exam GI & Abdominal Exam: Distended, Normal Bowel Sounds - Extremities Exam Extremities exam: pedal pulses present (2+ BL DP ) - Neurological Exam Neurological exam: Alert, CN II-XII Intact, Oriented x3 - Psychiatric Exam Psychiatric exam: Normal Affect, Normal Mood - Skin Skin Exam: Dry, Intact, Normal Color, Warm Discharge Plan - Discharge Medications Prescriptions: Cefuroxime Axetil [Cefuroxime] 250 mg PO BID 7 Days #14 tablet metroNIDAZOLE [Flagyl] 500 mg PO TID 7 Days #21 tab traMADol [Ultram] 50 mg PO TID PRN 3 Days #9 tab PRN Reason: Pain, Severe (8-10) - Follow Up Plan Condition: GOOD Disposition: HOME/ ROUTINE Instructions: Acute Abdomen (Belly Pain) Additional Instructions: Please follow up with your primary care doctor, Dr. Curtis, within 3-5 days of discharge, please inform your doctor you were recently discharged from [facility] Please follow up with Dr. Ferro (Stomach doctor) within 3-5 days of discharge Please start taking the following medications Ceftin (antibiotic) 250mg twice a day for 7 days Flagyl (antibiotic) 500mg three times a day for 7 days, DO NOT DRINK ANY ALCOHOL WHILE TAKING THIS MEDICATION IT WILL MAKE YOU SICK. TAKE THE ABOVE ANTIBIOTIC WITH FOOD Tramadol (pain medication) 50mg three times a day as needed for severe pain for 3 days PLEASE NOTE THIS IS A NARCOTIC PAIN MEDICATION DO NOT DRIVE OR OPERATE HEAVY MACHINERY WHILE TAKING THIS MEDICATION Please continue taking all of your home medications as previously prescribed Please drink plenty of fluids to avoid dehydration Please complete your antibiotic course even if you begin feeling better If you begin experiencing worsening abdominal pain, fevers, or new concerning symptoms arise please go to the nearest emergency department immediately Referrals: Eduardo Curtis MD [Staff Provider] - Matias Ferro MD [Medical Doctor] -
== END 2018-04-24 12:42 | disposition home or self-care (01) | DRG 392 ==
LOC: ED 15:26 → ERH 21:01 → 3RSO 04-22 00:14
PROVIDERS: ADMIT Internal Medicine; ATTEND Hospitalist
DX: K52.9 Noninfective gastroenteritis and colitis, unspecified (principal); Z79.899 Other long term (current) drug therapy; E87.6 Hypokalemia; E78.5 Hyperlipidemia, unspecified; I10 Essential (primary) hypertension; K21.9 Gastro-esophageal reflux disease without esophagitis; Z85.3 Personal history of malignant neoplasm of breast; G47.00 Insomnia, unspecified; K29.70 Gastritis, unspecified, without bleeding; K76.89 Other specified diseases of liver; K80.20 Calculus of gallbladder without cholecystitis without obstruction; M19.90 Unspecified osteoarthritis, unspecified site; Z79.810 Long term (current) use of selective estrogen receptor modulators (SERMs); Z86.010 Personal history of colon polyps; Z87.11 Personal history of peptic ulcer disease; Z90.11 Acquired absence of right breast and nipple; Z90.49 Acquired absence of other specified parts of digestive tract

== ENCOUNTER 2018-05-23 08:02 | Outpatient (CLI) | payer MEDICARE, MEDICAID | END 2018-05-23 08:03 | disposition home or self-care (01) | LOC: RAD 08:02 ==

== ENCOUNTER 2018-07-09 08:58 | Outpatient (CLI) | payer MEDICARE, MEDICAID | END 2018-07-09 08:59 | disposition home or self-care (01) | LOC: LAB 08:58 ==